=== PATIENT | female | born 1950 | race Caucasian/White ===

== ENCOUNTER 2018-10-16 13:01 | Inpatient (IN) | payer MEDICARE, BC ==
[2018-10-16] VITALS (9 sets, daily range): BP systolic 115–191; BP diastolic 59–88; PULSE 96–143; RESP 20; Ht 172.7 cm; Wt 47.3 kg
[~2018-10-16] VITALS: Ht 172.7 cm; Wt 47.3 kg
[~2018-10-16 13:01] MED LIST: ATEN-122; ATEN50TA PO; AUG875 PO; DOXY100T20 PO; LEVO500T48 PO; PREM125; PREM45 PO; VIC PO; VIT1TABL85 PO
[2018-10-16] MEDS ORDERED: HYDR-3980 PO (14:35)
[2018-10-16] MEDS ORDERED: ONDA8TAB83 PO (14:35)
[2018-10-16] MEDS ORDERED: LOPE-123 PO (14:35)
[2018-10-16] MEDS ORDERED: ONDANSETRON 4 MG TAB PO PRN (15:00)
[2018-10-16] MEDS: ATENOLOL 50 MG TAB PO SCH (15:30)
[2018-10-16] MEDS: D5-NS + KCL 20 MEQ 1,000 ML IV SCH (15:32)
[2018-10-16] MEDS: ACETAMINOPHEN 325 MG TAB PO PRN ×2 (15:33→22:08)
[2018-10-16] MEDS: HYDROCODONE/APAP (10/325) TAB PO PRN ×2 (15:40→21:02)
[2018-10-16] MEDS ORDERED: VITAMIN A & D 5 GM OINT PACKET TOP ONE (15:46)
[2018-10-16] MEDS ORDERED: VANCOMYCIN IV PER PHARMACY XX SCH (17:00)
[2018-10-16] MEDS ORDERED: ZOLPIDEM 5 MG TAB PO PRN (17:00)
[2018-10-16] MEDS: PIPER-TAZO 3.375 GM IV (PMX) 100 ML IVPB SCH (18:20)
[2018-10-16] MEDS ORDERED: ONDANSETRON 4 MG INJ IV PRN (18:30)
[2018-10-16] MEDS ORDERED: DIPHENHYD/MYLANTA/LIDO (PO SYG) PO PRN (19:00)
[2018-10-16] MEDS ORDERED: IOHEXOL 14.3 MG(I)/ML (ADULT) BTL PO ONE (19:00)
[2018-10-16] MEDS ORDERED: HYDROmorphONE 0.2 MG/ML PCA IV PRN (19:00)
--- NOTE | 2018-10-16 19:48 | HP ---
DATE OF ADMISSION: 10/16/2018 CHIEF COMPLAINT: Shaking chills, abdominal pain, diarrhea, nausea, vomiting and pancytopenia. HISTORY OF PRESENT ILLNESS: Ms. Baker is a 67-year-old postmenopausal female who is 1, para 0, AB 1. The patient has recently been diagnosed as having an invasive ductal carcinoma of the left breast. The patient did undergo a biopsy of the left breast mass and this was found to be consisten t with a poorly differentiated invasive ductal carcinoma of the breast. The tumor was estrogen and p rogesterone receptor positive as well as HER2/natalia positive. The patient was started on neoadjuvant chemotherapy on 10/09/2018. The patient was to rec eive "dose dense" chemotherapy with Adriamycin and cyclophosphamide being given every 2 weeks for 4 c ycles followed by paclitaxel weekly for 8 weeks. As mentioned, the patient did receive initial chemotherapy on 10/09/2018. She felt well until approx imately 36 hours ago when she began to experience some increasing weakness and fatigue as well as abd ominal pain and diarrhea. The patient also had shaking chills. She did not take her temperature, bu t she felt like she did have temperature. It should be noted that the patient did receive pegfilgrastim (Neulasta) 24 hours following her chemo therapy on 10/09/2018. The patient was seen in the office today because of those complaints listed above. A CBC done in the office showed a white count of only 100 with 25% being neutrophils. Hemoglobin was 8.2, hematocrit 25.1 and platelet count was 7000. When the patient was seen in the office at the time of chemotherap y, her white count was 2800 with an absolute neutrophil count of 1600, hemoglobin was 9.8, hematocrit 29.5 and platelet count was 158,000. The patient's other complaints at this time include mouth disc omfort and dysphagia with odynophagia. The patient as mentioned has had diarrhea. She has not noticed melena or hematochezia. The patient had not been taking antibiotics recently. PAST MEDICAL HISTORY: Includes the recent finding of the left breast mass. The patient also has his tory of diverticulosis as well as endometriosis. She has required blood transfusions in the past. H as had a history of a possible atrial fibrillation. Also has had history of malignant melanoma which has been resected as well as a squamous cell carcinoma. PAST SURGICAL HISTORY: Included biopsy of the breast as well as a previous right breast cyst excisio n. The patient has also had abdominal hysterectomy. She has had the excision of melanoma with skin graft. She had also excision of squamous cell carcinoma. MEDICATIONS: Include: 1. Hydrocodone with acetaminophen 10/325. 2. Atenolol 50 mg orally. 3. Estradiol 0.5 mg orally. ALLERGIES: THE PATIENT HAS NO KNOWN ALLERGIES. SOCIAL HISTORY: The patient is . She has never smoked cigarettes or used tobacco products. She does use alcohol on a regular basis. FAMILY HISTORY: Remarkable in that her mother, sister and maternal aunt have had breast carcinomas. LABORATORY DATA: At the time of admission include a sodium 133, potassium 3.9, BUN 17, creatinine 0. 78. Lactic acid 1.8. Uric acid 3.6. Calcium 7.8 with albumin of 3.1, alkaline phosphatase 59. LDH 294. AST 31, ALT 31 and total bilirubin 0.2. White blood cell count on admission is 100. There are 2% neutrophils. Hemoglobin 7.7, hematocrit 22 .0 and platelet count 5000. Pro time is 13.5 seconds, INR 1.02 and PTT is 43.4 seconds. DIAGNOSTIC DATA: Chest x-ray done on admission does show the central line ____ patient's Port-A-Cath . REVIEW OF SYSTEMS: HEENT: The patient complains of headache. She states this is different than her usual migraine head aches. There is no diplopia or blurred vision, no tinnitus. CARDIORESPIRATORY: No complaints of chest pain, cough, hemoptysis. No orthopnea or PND. GASTROINTESTINAL: There is diffuse abdominal pain. Some nausea and vomiting and also diarrhea. No melena or hematochezia. GENITOURINARY: No dysuria, hematuria, nocturia. MUSCULOSKELETAL: No unusual joint pain, swelling or tenderness. PHYSICAL EXAMINATION: GENERAL: Reveals a well-developed but frail and chronically ill-appearing female who is somewhat let hargic. VITAL SIGNS: Temperature 101 orally, pulse 115, respirations 18, blood pressure 100/60. SKIN: Pale. No ecchymosis, no petechiae or rashes. HEENT: Normocephalic. No evidence of trauma. Pupils are equal, round, react to light and accommoda tion. Sclerae are nonicteric. Oral mucosa is dry and no lesions. NECK: Supple. No jugular venous distention or thyroid enlargement. CHEST: Clear to auscultation and percussion. No rhonchi, wheezes, rales or rubs. There is a Port-A -Cath present in the right anterior chest wall. This has been accessed. BREASTS: There is a 2 cm palpable mass in the medial aspect of the left breast. There are no skin r etraction, no nipple inversion. No axillary masses. HEART: Sinus tachycardia. No S3, S4 or murmurs. ABDOMEN: Slightly distended and tender with diffuse guarding. No rebound tenderness. Bowel sounds are decreased. EXTREMITIES: No clubbing. No edema or cyanosis. No palpable cords or Homans sign. NEUROLOGIC: Normal. IMPRESSION: 1. Breast carcinoma. 2. Pancytopenia secondary to chemotherapy and possible sepsis. 3. Fever, chills, diarrhea, possible sepsis versus toxicity due to chemotherapy. The patient will be admitted to [address] [place] [address]. She will be started on a sep sis protocol. After cultures have been obtained, the patient will be started on antibiotics with vancomycin and Zos yn. The patient's platelet count is 5000 and therefore, patient will be transfused with 1 unit of platele tpheresis. The patient is complaining of abdominal pain and diarrhea. We will request a CT scan of the abdomen and pelvis with and without contrast. As noted, the patient is leukopenic in spite of having received pegfilgrastim [address] art the patient again on Neupogen ____ mcg daily. Dictated By: GERARDO TAVAREZ MD, SR/BECCA Conf#: [id number] DID#: [id number]
[2018-10-16] MEDS ORDERED: VANCOMYCIN 1 GM 250 ML IVPB SCH (20:30)
[2018-10-16] MEDS ORDERED: FILGRASTIM 480 MCG INJ SC SCH (20:30)
[2018-10-16] MEDS ORDERED: DIPHENHYDRAMINE 50 MG INJ IM PRN (22:00)
[2018-10-16] MEDS ORDERED: ACETAMINOPHEN 325 MG TAB PO PRN (22:00)
[2018-10-16] MEDS: DIPHENHYDRAMINE 50 MG INJ IV PRN (22:08)
[2018-10-17] VITALS (16 sets, daily range): BP systolic 95–144; BP diastolic 55–84; PULSE 81–120; RESP 18–29
[2018-10-17] MEDS: D5-NS + KCL 20 MEQ 1,000 ML IV SCH ×3 (00:30→20:40)
[2018-10-17] MEDS: PIPER-TAZO 3.375 GM IV (PMX) 100 ML IVPB SCH ×4 (01:49→18:25)
[2018-10-17] MEDS: HYDROCODONE/APAP (10/325) TAB PO PRN (02:00)
[2018-10-17] MEDS: HYDROmorphONE 1 MG/ML SYG IV PRN ×4 (05:00→20:29)
[2018-10-17] MEDS: ATENOLOL 50 MG TAB PO SCH (08:25)
[2018-10-17] MEDS ORDERED: ACETAMINOPHEN 1000MG/100ML IV 100 ML IVPB ONE ×2 (08:30→17:30)
[2018-10-17] MEDS: VANCOMYCIN 500 MG (PMX) 100 ML IVPB SCH ×2 (08:34→22:45)
[2018-10-17] MEDS: MULTIVITAMINS/MINERALS TAB PO SCH (08:44)
[2018-10-17] MEDS ORDERED: SOD CHLORIDE 0.9% 100 ML ONE (11:38)
[2018-10-17] MEDS ORDERED: IOHEXOL 300MG/ML 150 ML BTL ONE (11:38)
--- NOTE | 2018-10-17 15:08 | PN ---
Date/Time of Note Date/Time of Note DATE: 10/17/18 TIME: 14:58 Assessment/Plan VTE Prophylaxis Risk score (from Ns)>0 risk: 7 SCD applied (from [facility] [place] No SCD contraindicated: other (per primary) Pharmacological prophylaxis: other (thrombocytopenia) Lines/Catheters IV Catheter Type (from [facility]): PORT A CATH Urinary Cath still in place: No Assessment/Plan Assessment/Plan Pt remains pancytopenic despite Neulasta and now Neupogen. She did get chemotherapy but stopped eating as well. Her also says that she has never been a good eater and this has been a problem for many years. Presently she is eating virtually nothing since she says that it hurts to swallow. She also refuses to talk for the same reason. I discussed with them liquid food supplements, such as Ensure Clear. It is not clear that she will try this but I asked the nurse to get some. I also told the pt and her that she will recover faster if some nutrition can be provided. The tachycardia is improved since Dr. Hardin convinced her to at least take the Tenormin, that was a regular med for her. The rhythm is regular and does not look like atrial fibrillation. Result Diagram: 10/16/18 1526 10/16/18 1526 Results 24hrs Laboratory Tests Test 10/16/18 15:23 10/16/18 15:26 10/16/18 17:29 10/17/18 02:00 Amylase Level < 30 Lipase 14 L White Blood Count 0.1 #L Red Blood Count 2.16 #L Hemoglobin 7.7 #L Hematocrit 22.0 #L Mean Corpuscular 101.9 H Volume Mean Corpuscular 35.6 H Hemoglobin Mean Corpuscular 35.0 Hemoglobin Concent Red Cell 14.6 H Distribution Width Platelet Count 5 *L Mean Platelet 13.9 #H Volume Immature 0.000 L Granulocytes % Neutrophils % Segmented 2 L Neutrophils % (Manual) Lymphocytes % Lymphocytes % 98 H (Manual) Monocytes % Eosinophils % Basophils % Nucleated Red Blood 0.0 Cells % Immature 0.000 Granulocytes # Neutrophils # Lymphocytes 0.0 L (Manual) Lymphocytes # 0.1 L Monocytes # Eosinophils # Basophils # Nucleated Red Blood Cells # Pathologist YES Review (Hematology) Prothrombin Time 13.5 Prothrombin Time 1.1 Ratio INR International 1.02 Normalized Ratio Activated 43.4 H 43.3 H Partial Thromboplas t Time Sodium Level 133 L Potassium Level 3.9 Chloride Level 106 Carbon Dioxide 18 L Level Anion Gap 9 Blood Urea Nitrogen 17 Creatinine 0.78 Est Glomerular > 60 Filtrat Rate mL/min Glucose Level 96 Lactic Acid Level 1.8 Uric Acid 3.6 Calcium Level 7.8 L Total Bilirubin 0.2 Direct Bilirubin 0.00 Indirect Bilirubin 0.2 Aspartate Amino 31 Transf (AST/SGOT) Alanine 31 Aminotransferase (A LT/SGPT) Alkaline 59 Phosphatase Lactate 294 L Dehydrogenase Total Protein 5.5 L Albumin 3.1 L Globulin 2.40 Albumin/Globulin 1.29 Ratio Mix PTT Normal 35.8 Plasma Immediate Mix PTT Normal 39.0 Plasma 1 Hour Urine Color YELLOW Urine Clarity CLEAR Urine pH 5.0 Urine Specific 1.017 [place] Urine Ketones NEGATIVE Urine Nitrite NEGATIVE Urine Bilirubin NEGATIVE Urine Urobilinogen NEGATIVE Urine Leukocyte NEGATIVE Esterase Urine Microscopic 5 RBC Urine Microscopic 1 WBC Urine Squamous FEW Epithelial Cells Urine Bacteria FEW A Urine Hemoglobin 1+ H Urine Glucose NEGATIVE Urine Total Protein 1+ H Test 10/17/18 07:02 10/17/18 11:44 Lab Scanned Report BLOOD TRANSFUSION Lactic Acid Level 0.8 Subjective 24 Hr Interval Summary Free Text/Dictation 67 yo woman admitted for pancytopenia and fever, related in part to chemotherapy. He also stopped eating and has a history of poor nutritional intake for many years according to her and her . Last night she had a febrile reaction to platelet transfusion but has defervesced. She also had a sinus tachycardia that was likely due to the anemia and to cessation of beta alex that she has been on chronically. Exam/Review of Systems Vital Signs Vitals Vital Signs Date Temp Pulse Resp B/P (MAP) Pulse Ox O2 O2 Flow FiO2 Time Delivery Rate 10/17/18 91 19 108/61 100 Nasal 2.0 14:00 (77) Cannula 10/17/18 99.9 12:00 Intake and Output 10/16/18 10/16/18 10/17/18 1515:00 23:00 07:00 IntakeIntake Total 720 ml 1250 ml BalanceBalance 720 ml 1250 ml Exam Constitutional: alert, oriented Head: normocephalic Eyes: other (pallor) ENMT: other (miuld mucositis but no thrush seen.) Respiratory: clear to auscultation Cardiovascular: regular rate and rhythm (~98) Gastrointestinal: soft, non-tender Medications Medications Current Medications Potassium Chloride/Dextrose/ Sod Cl 1,000 ml @ 100 mls/hr Q10H IV Last admini stered on 10/17/18at 06:57; Admin Dose 100 MLS/HR; Start 10/16/18 at 14:30 Atenolol (Tenormin) 50 mg DAILY PO Last administered on 10/17/18 08:25; Admin Dose 50 MG; Start 10/16/18 at 15:30 Acetaminophen/ Hydrocodone Bitart ([place] (10/325)) 1 tab Q4H WHILE AWAKE PRN PO PAIN Last administered on 10/17/18 02:00; Admin Dose 1 TAB; Start 10/16/18 at 15:00 Ondansetron HCl (Zofran Tab) 8 mg Q8H PRN PO NAUSEA AND/OR VOMITING; Start 10/16/18 at 15:00 Multivitamins/ Minerals (Theragran-M) 1 tab DAILY PO ; Start 10/17/18 at 09:00 Acetaminophen (Tylenol Tab) 650 mg Q6H PRN PO MILD PAIN(1-3)OR ELEVATED TEMP L ast administered on 10/16/18 22:08; Admin Dose 650 MG; Start 10/16/18 at 15:00 Piperacillin Sod/ Tazobactam Sod 100 ml @ 200 mls/hr Q6 IVPB Last administered on 10/17/18 12:35; Admin Dose 200 MLS/HR; Start 10/16/18 at 18:00; Stop 10/23/18 at 18:00 Vancomycin HCl (Vanco Iv Per Pharmacy) VANCOMYCIN PER PHARMACY PER PROTOCOL XX ; Start 10/16/18 at 17:00 Zolpidem Tartrate (Ambien) 5 mg HS PRN PO INSOMNIA; Start 10/16/18 at 17:00 Ondansetron HCl (Zofran Inj) 4 mg Q4H PRN IV NAUSEA AND/OR VOMITING Last administered on 10/16/18 18:25; Admin Dose 4 MG; Start 10/16/18 at 18:30 Miscellaneous Medication (Bax Susp) 10 ml Q6H PRN PO mouth pain and dysphagia Last administered on 10/17/18 08:25; Admin Dose 10 ML; Start 10/16/18 at 19:00 Hydromorphone HCl (Dilaudid) 1 mg Q3H PRN IV SEVERE PAIN LEVEL 7-10 Last administered on 10/17/18at 11:03; Admin Dose 1 MG; Start 10/16/18 at 19:30 Filgrastim (Neupogen) 480 mcg DAILY@17 SC ; Start 10/17/18 at 17:00 Vancomycin HCl 100 ml @ 100 mls/hr Q12H IVPB Last administered on 10/17/18at 08:34; Admin Dose 100 MLS/HR; Start 10/17/18 at 08:00 Diphenhydramine HCl (Benadryl) 50 mg Q6H PRN IM ALLERGIC REACTION; Start 10/16/18 at 22:00 Diphenhydramine HCl (Benadryl) 50 mg Q6H PRN IV ALLERGIC REACTION Last administered on 10/16/18at 22:08; Admin Dose 50 MG; Start 10/16/18 at 22:30 Miscellaneous Information (*Rx Drug Level Order Reminder*) 1 ONCE ONCE XX ; Start 10/18/18 at 07:00; Stop 10/18/18 at 07:01 NATE LOPEZ MD Oct 17, 2018 15:08
[2018-10-17] MEDS: FILGRASTIM 480 MCG INJ SC SCH (17:26)
--- NOTE | 2018-10-17 17:34 | CONS ---
Date/Time of Note Date/Time of Note DATE: 10/17/18 TIME: 17:33 Assessment/Plan Assessment/Plan Assessment/Plan 67 yowf w/ invasive ductal carcinoma of the left breast who was sent to [facility] b/c f/c, and pancytopenia. Called to see pt b/c tachycardia. Reviewed her ECG and telemetry, and the rhythm is sinus tachycardia. Don't see any PAF or SVT (in my review). Considering she has neutropenic fever, her tachycardia is likely physiologic. Can continue atenolol as bp tolerates. Continue to monitor on telemetry. Would check echo (r/o any effusion). Tx of pancytopenia and fever per medicine team and oncology. Result Diagram: 10/16/18 1526 10/16/18 1526 Results 24hrs Laboratory Tests Test 10/17/18 02:00 10/17/18 07:02 10/17/18 11:44 Urine Color YELLOW Urine Clarity CLEAR Urine pH 5.0 Urine Specific [place] 1.017 Urine Ketones NEGATIVE Urine Nitrite NEGATIVE Urine Bilirubin NEGATIVE Urine Urobilinogen NEGATIVE Urine Leukocyte Esterase NEGATIVE Urine Microscopic RBC 5 Urine Microscopic WBC 1 Urine Squamous Epithelial Cells FEW Urine Bacteria FEW A Urine Hemoglobin 1+ H Urine Glucose NEGATIVE Urine Total Protein 1+ H Lab Scanned Report BLOOD TRANSFUSION Lactic Acid Level 0.8 Consultation Date/Type/Reason Admit Date/Time Oct 16, 2018 at 14:00 Date of Consultation: Oct 17, 2018 Type of Consult Cardiology Reason for Consultation tachycardia Hx of Present Illness 67 yowf w/ invasive ductal carcinoma of the left breast who was sent to [facility] b/c f/c, and pancytopenia. Called to see pt b/c tachycardia. Pt is receiving chemotherapy (including adriamycin and cyclophosphamide). She was noted to be tachycardic w/ HR in the 110s. The rhythm was sinus tachycardia (no afib). She is normally followed by Dr. Nevarez. Chart her mentions possible afib (will have to review office records). Currently her HR is in the 90s. She denies cp or sob. Past Medical History Invasive ductal carcinoma (on chemo) possible afib? (per chart) Medications Current Medications Potassium Chloride/Dextrose/ Sod Cl 1,000 ml @ 100 mls/hr Q10H IV Last administered on 10/17/18at 06:57; Admin Dose 100 MLS/HR; Start 10/16/18 at 14:30 Atenolol (Tenormin) 50 mg DAILY PO Last administered on 10/17/18at 08:25; Admin Dose 50 MG; Start 10/16/18 at 15:30 Acetaminophen/ Hydrocodone Bitart ([place] (10/325)) 1 tab Q4H WHILE AWAKE PRN PO PAIN Last administered on 10/17/18at 02:00; Admin Dose 1 TAB; Start 10/16/18 at 15:00 Ondansetron HCl (Zofran Tab) 8 mg Q8H PRN PO NAUSEA AND/OR VOMITING; Start 10/16/18 at 15:00 Multivitamins/ Minerals (Theragran-M) 1 tab DAILY PO ; Start 10/17/18 at 09:00 Acetaminophen (Tylenol Tab) 650 mg Q6H PRN PO MILD PAIN(1-3)OR ELEVATED TEMP Last administered on 10/16/18at 22:08; Admin Dose 650 MG; Start 10/16/18 at 15:00 Piperacillin Sod/ Tazobactam Sod 100 ml @ 200 mls/hr Q6 IVPB Last administered on 10/17/18at 12:35; Admin Dose 200 MLS/HR; Start 10/16/18 at 18:00; Stop 10/23/18 at 18:00 Vancomycin HCl (Vanco Iv Per Pharmacy) VANCOMYCIN PER PHARMACY PER PROTOCOL XX ; Start 10/16/18 at 17:00 Zolpidem Tartrate (Ambien) 5 mg HS PRN PO INSOMNIA; Start 10/16/18 at 17:00 Ondansetron HCl (Zofran Inj) 4 mg Q4H PRN IV NAUSEA AND/OR VOMITING Last administered on 10/16/18at 18:25; Admin Dose 4 MG; Start 10/16/18 at 18:30 Miscellaneous Medication (Bax Susp) 10 ml Q6H PRN PO mouth pain and dysphagia Last administered on 10/17/18at 08:25; Admin Dose 10 ML; Start 10/16/18 at 19:00 Hydromorphone HCl (Dilaudid) 1 mg Q3H PRN IV SEVERE PAIN LEVEL 7-10 Last administered on 10/17/18at 15:01; Admin Dose 1 MG; Start 10/16/18 at 19:30 Filgrastim (Neupogen) 480 mcg DAILY@17 SC ; Start 10/17/18 at 17:00 Vancomycin HCl 100 ml @ 100 mls/hr Q12H IVPB Last administered on 10/17/18at 08:34; Admin Dose 100 MLS/HR; Start 10/17/18 at 08:00 Diphenhydramine HCl (Benadryl) 50 mg Q6H PRN IM ALLERGIC REACTION; Start 10/16/18 at 22:00 Diphenhydramine HCl (Benadryl) 50 mg Q6H PRN IV ALLERGIC REACTION Last administered on 10/16/18at 22:08; Admin Dose 50 MG; Start 10/16/18 at 22:30 Miscellaneous Information (*Rx Drug Level Order Reminder*) 1 ONCE ONCE XX ; Start 10/18/18 at 07:00; Stop 10/18/18 at 07:01 Allergies: Coded Allergies: No Known Drug Allergies (Verified Allergy, Unknown, 10/20/13) Social History Smoking Status: Never smoker Exam/Review of Systems Vital Signs Vitals Vital Signs Date Temp Pulse Resp B/P (MAP) Pulse Ox O2 O2 Flow FiO2 Time Delivery Rate 10/17/18 94 16:00 10/17/18 108/61 100 Nasal 2.0 14:00 (77) Cannula 10/17/18 99.9 12:00 Intake and Output 10/16/18 10/16/18 10/17/18 1515:00 23:00 07:00 IntakeIntake Total 720 ml 1250 ml BalanceBalance 720 ml 1250 ml Exam awake, alert, fatigued, ill-appearing Neck: supple; No jvd Respiratory: clear to auscultation Cardiovascular: regular rate and rhythm; No systolic murmur Gastrointestinal: soft Extremities: No edema Neurological: nl mental status Medications Medications Current Medications Potassium Chloride/Dextrose/ Sod Cl 1,000 ml @ 100 mls/hr Q10H IV Last administered on 10/17/18at 06:57; Admin Dose 100 MLS/HR; Start 10/16/18 at 14:30 Atenolol (Tenormin) 50 mg DAILY PO Last administered on 10/17/18at 08:25; Admin Dose 50 MG; Start 10/16/18 at 15:30 Acetaminophen/ Hydrocodone Bitart ([place] (10/325)) 1 tab Q4H WHILE AWAKE PRN PO PAIN Last administered on 10/17/18 02:00; Admin Dose 1 TAB; Start 10/16/18 at 15:00 Ondansetron HCl (Zofran Tab) 8 mg Q8H PRN PO NAUSEA AND/OR VOMITING; Start 10/16/18 at 15:00 Multivitamins/ Minerals (Theragran-M) 1 tab DAILY PO ; Start 10/17/18 at 09:00 Acetaminophen (Tylenol Tab) 650 mg Q6H PRN PO MILD PAIN(1-3)OR ELEVATED TEMP Last administered on 10/16/18at 22:08; Admin Dose 650 MG; Start 10/16/18 at 15:00 Piperacillin Sod/ Tazobactam Sod 100 ml @ 200 mls/hr Q6 IVPB Last administered on 10/17/18at 12:35; Admin Dose 200 MLS/HR; Start 10/16/18 at 18:00; Stop 10/23/18 at 18:00 Vancomycin HCl (Vanco Iv Per Pharmacy) VANCOMYCIN PER PHARMACY PER PROTOCOL XX ; Start 10/16/18 at 17:00 Zolpidem Tartrate (Ambien) 5 mg HS PRN PO INSOMNIA; Start 10/16/18 at 17:00 Ondansetron HCl (Zofran Inj) 4 mg Q4H PRN IV NAUSEA AND/OR VOMITING Last administered on 10/16/18 18:25; Admin Dose 4 MG; Start 10/16/18 at 18:30 Miscellaneous Medication (Bax Susp) 10 ml Q6H PRN PO mouth pain and dysphagia Last administered on 10/17/18at 08:25; Admin Dose 10 ML; Start 10/16/18 at 19:00 Hydromorphone HCl (Dilaudid) 1 mg Q3H PRN IV SEVERE PAIN LEVEL 7-10 Last administered on 10/17/18at 15:01; Admin Dose 1 MG; Start 10/16/18 at 19:30 Filgrastim (Neupogen) 480 mcg DAILY@17 SC ; Start 10/17/18 at 17:00 Vancomycin HCl 100 ml @ 100 mls/hr Q12H IVPB Last administered on 10/17/18at 08:34; Admin Dose 100 MLS/HR; Start 10/17/18 at 08:00 Diphenhydramine HCl (Benadryl) 50 mg Q6H PRN IM ALLERGIC REACTION; Start 10/16/18 at 22:00 Diphenhydramine HCl (Benadryl) 50 mg Q6H PRN IV ALLERGIC REACTION Last administered on 10/16/18at 22:08; Admin Dose 50 MG; Start 10/16/18 at 22:30 Miscellaneous Information (*Rx Drug Level Order Reminder*) 1 ONCE ONCE XX ; Start 10/18/18 at 07:00; Stop 10/18/18 at 07:01 Imaging Imaging ECG - ST @ 102, nl axis, QRS 68, no pathologic Q or ischemic ST changes MADDIE GONZALES Oct 17, 2018 17:34
--- NOTE | 2018-10-17 19:38 | RADRPT ---
Vent Rate: 102 bpm RR Interval: 0 msec NE Interval: 154 msec QRS Duration: 68 msec QT Interval: 364 msec QTC Interval: 474 msec P-R-T [place]: 68 - 31 - 58 degrees Sinus tachycardia Otherwise normal ECG Electronically Signed By: Malik Juan [id number]
--- NOTE | 2018-10-17 22:04 | CONS ---
DATE OF ADMISSION: 10/16/2018 DATE OF CONSULTATION: 10/16/2018 I am covering this patient of Dr. Ritchie while he is unavailable. The patient is unwilling or unable to speak due to mouth pain, so history is obtained from the chart and from Dr. Ritchie's outpatient record. CHIEF COMPLAINT: The patient complains of pancytopenia, fever, abdominal pain. HISTORY OF PRESENT ILLNESS: The patient is a 67-year-old female with recent diagnosis of b reast cancer, receiving chemotherapy with Dr. Youssef about a week ago. Approximately 2 days prior, patient began feeling weak, fatigued with abdominal pain and watery diarrhea. She also had a subject donita temperature. The patient was seen by Dr. Youssef yesterday; platelets were noted to be 7000 with a white blood cell count of 100. The patient has a significant decreased appetite, admitted for fur ther management. The patient was started on antibiotics after appropriate cultures were drawn and al so was given a platelet transfusion during which patient had a reaction. She had an elevated blood p ressure and tachycardia. She was given Benadryl. I would also note that the patient had declined he r Atenolol earlier because of her mouth pain. The patient does report some difficulty speaking due t o her mouth pain and some sore throat. She did agree to take her Atenolol this morning. The patient denies any chest pain, shortness of breath. She did have some mild cough, but denies any abdominal pain. Stool was watery diarrhea. PAST MEDICAL HISTORY: Poorly differentiated invasive ductal carcinoma of the left breast. History o f cardiac arrhythmia, hyperlipidemia, melanoma, squamous cell carcinoma, diverticulosis, history of d iverticulitis. OPERATIONS: Breast cyst hysterectomy, removal of melanoma, removal of squamous cell carcinoma of the skin. MEDICATIONS: Outpatient 1. Atenolol 50 mg daily. 2. Vicodin p.r.n. 3. Folate. 4. B complex. 5. Estradiol. ALLERGIES: THE PATIENT HAS NO KNOWN DRUG ALLERGIES. SOCIAL HISTORY: The patient is . No tobacco. Occasional alcohol use. FAMILY HISTORY: Breast cancer in mother, sister and maternal aunt. Further review of systems not ob tainable due to patient not able to speak. PHYSICAL EXAMINATION: VITAL SIGNS: Temperature 98.3, pulse 120, blood pressure 137/84, respirations 18, pulse ox 99% on ro om air. GENERAL APPEARANCE: This is an ill-appearing female. Not speaking but in no acute distres s. HEENT: Normocephalic, atraumatic. The patient unable to open her mouth due to pain. NECK: Sensitive to the touch. Exam is limited. LUNGS: Clear to auscultation. CARDIAC: Tachycardic but regular. ABDOMEN: Bowel sounds are present. Abdomen is soft, nontender, nondistended. EXTREMITIES: Without cyanosis, clubbing, or edema. NEUROLOGIC: The patient is awake and alert but not speaking due to pain in her mouth. Moves all 4 e xtremities symmetrically. LABORATORY DATA: White count 0.1, hemoglobin 7.7, platelets 5000. Sodium 133, potassium 2.9, chlori de 106, bicarbonate 18, BUN 17, creatinine 0.78, glucose 96, AST 31, ALT 31. LDH 294, albumin 3.1, a mylase less than 30, lipase 14. INR 1.02, PTT 43.4, lactic acid 1.8. UA specific gravity 1.017, pH 5.0, negative leukocyte esterase, 5 RBCs, 1 white blood cell per high power field, few bacteria, 1+ h emoglobin, 1+ protein. IMPRESSION: 1. Pancytopenia. 2. Fever, rule out sepsis. 3. Abdominal pain and diarrhea, rule out infectious causes. 4. Tachycardia with history of cardiac arrhythmia. 5. Left breast cancer. PLAN: The patient to be transferred to telemetry. Beta alex as prescribed. The patient was agre eable to take her Atenolol this morning. Continue hydration, antibiotics as ordered. Follow up cult ure results. Abdominal CT pending. A 2D echo pending. Cardiology consult. Continue Benadryl as ne eded. Monitor labs. Dictated By: MADONNA ANTUNEZ MD MN/NTS Conf#: [id number] DID#: [id number] CC: SILVANO RITCHIE MD;*EndCC*
[2018-10-18] VITALS (28 sets, daily range): BP systolic 108–170; BP diastolic 61–100; PULSE 81–117; RESP 18–47
[2018-10-18] MEDS: PIPER-TAZO 3.375 GM IV (PMX) 100 ML IVPB SCH ×4 (00:51→17:14)
[2018-10-18] MEDS: HYDROmorphONE 1 MG/ML SYG IV PRN (02:27)
[2018-10-18] MEDS ORDERED: FUROSEMIDE 20 MG INJ IM ONE (05:30)
[2018-10-18] MEDS: D5-NS + KCL 20 MEQ 1,000 ML IV SCH ×2 (06:30→19:30)
--- NOTE | 2018-10-18 08:04 | CONS ---
Date/Time of Note Date/Time of Note DATE: 10/18/18 TIME: 07:49 Assessment/Plan Assessment/Plan Assessment/Plan 1) neutropenic fever continue with vanco/zosyn no fevers since 4pm yesterday blood cx are NGTD 2) odynophagia and loss of voice likely due to mucositis from the chemo I will start diflucan for possible candidal infection 3) R neck fullness I will order CT neck with IV contrast to verify no extravasation of blood has occurred or possible abscess due to the mucositis or impingement upon the esophagus/vocal cords on vanco/zosyn/diflucan would treat the possible infectious etiologies 4) typhilitis doubt she has c.dif, no prior antibiotics and diarrhea was present prior to intiation of them more likely due to the low WBC 5) breast CA s/p chemo Result Diagram: 10/18/18 0449 10/18/18 0449 Results 24hrs Laboratory Tests Test 10/17/18 11:44 10/18/18 04:49 Lactic Acid Level 0.8 White Blood Count 0.1 L Red Blood Count 1.25 #L Hemoglobin 4.5 #*L Hematocrit 13.6 #L Mean Corpuscular Volume 108.8 H Mean Corpuscular Hemoglobin 36.0 H Mean Corpuscular Hemoglobin Concent 33.1 Red Cell Distribution Width 15.3 H Platelet Count 3 #*L Mean Platelet Volume 14.7 H Nucleated Red Blood Cells % 0.0 Nucleated Red Blood Cells # Sodium Level 146 H Potassium Level 3.1 L Chloride Level 120 H Carbon Dioxide Level 17 L Anion Gap 9 Blood Urea Nitrogen 21 H Creatinine 0.99 Est Glomerular Filtrat Rate mL/min 56 L Glucose Level 75 Calcium Level 7.8 L Albumin 2.8 L Consultation Date/Type/Reason Admit Date/Time Oct 16, 2018 at 14:00 Date of Consultation: Oct 18, 2018 Type of Consult ID Hx of Present Illness pt was recently diagnosed with breast CA and received chemo around one week ago She 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, C, 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 but has had fevers her in the hospital she developed difficulty in talking about 3 days ago and now how trouble swallowing She has had diarrhea and abd pain upon admission and still does, no recent antibiotics She also has developed pain to R neck area with some noticeable swelling She developed SOB last night and was brought to the ICU and she was found to h ave a hgb of 4.5 She denies CP No dysuria She has sore throat She has a NUÑEZ and dizziness Past Medical History endometriosis, diverticulosis, melenoma, a-fib, L breast CA Medications Current Medications Potassium Chloride/Dextrose/ Sod Cl 1,000 ml @ 100 mls/hr Q10H IV Last administered on 10/17/18at 20:40; Admin Dose 100 MLS/HR; Start 10/16/18 at 14:30 Atenolol (Tenormin) 50 mg DAILY PO Last administered on 10/17/18at 08:25; Admin Dose 50 MG; Start 10/16/18 at 15:30 Acetaminophen/ Hydrocodone Bitart ([place] (10/325)) 1 tab Q4H WHILE AWAKE PRN PO PAIN Last administered on 10/17/18at 02:00; Admin Dose 1 TAB; Start 10/16/18 at 15:00 Ondansetron HCl (Zofran Tab) 8 mg Q8H PRN PO NAUSEA AND/OR VOMITING; Start 10/16/18 at 15:00 Multivitamins/ Minerals (Theragran-M) 1 tab DAILY PO ; Start 10/17/18 at 09:00 Acetaminophen (Tylenol Tab) 650 mg Q6H PRN PO MILD PAIN(1-3)OR ELEVATED TEMP Last administered on 10/16/18at 22:08; Admin Dose 650 MG; Start 10/16/18 at 15:00 Piperacillin Sod/ Tazobactam Sod 100 ml @ 200 mls/hr Q6 IVPB Last administered on 10/18/18at 06:29; Admin Dose 200 MLS/HR; Start 10/16/18 at 18:00; Stop 10/23/18 at 18:00 Vancomycin HCl (Vanco Iv Per Pharmacy) VANCOMYCIN PER PHARMACY PER PROTOCOL XX ; Start 10/16/18 at 17:00 Zolpidem Tartrate (Ambien) 5 mg HS PRN PO INSOMNIA; Start 10/16/18 at 17:00 Ondansetron HCl (Zofran Inj) 4 mg Q4H PRN IV NAUSEA AND/OR VOMITING Last administered on 10/16/18at 18:25; Admin Dose 4 MG; Start 10/16/18 at 18:30 Miscellaneous Medication (Bax Susp) 10 ml Q6H PRN PO mouth pain and dysphagia Last administered on 10/17/18 08:25; Admin Dose 10 ML; Start 10/16/18 at 19:00 Hydromorphone HCl (Dilaudid) 1 mg Q3H PRN IV SEVERE PAIN LEVEL 7-10 Last administered on 10/18/18 02:27; Admin Dose 1 MG; Start 10/16/18 at 19:30 Filgrastim (Neupogen) 480 mcg DAILY@17 SC Last administered on 10/17/18at 17:26; Admin Dose 480 MCG; Start 10/17/18 at 17:00 Vancomycin HCl 100 ml @ 100 mls/hr Q12H IVPB Last administered on 10/17/18at 22:45; Admin Dose 100 MLS/HR; Start 10/17/18 at 08:00 Diphenhydramine HCl (Benadryl) 50 mg Q6H PRN IM ALLERGIC REACTION; Start 10/16/18 at 22:00 Diphenhydramine HCl (Benadryl) 50 mg Q6H PRN IV ALLERGIC REACTION Last administered on 10/16/18at 22:08; Admin Dose 50 MG; Start 10/16/18 at 22:30 Levalbuterol (Xopenex Neb) 0.63 mg Q4H RESP THERAPY HHN ; Start 10/18/18 at 09:00 Allergies: Coded Allergies: No Known Drug Allergies (Verified Allergy, Unknown, 10/20/13) Social History Smoking Status: Never smoker Exam/Review of Systems Vital Signs Vitals Vital Signs Date Temp Pulse Resp B/P (MAP) Pulse Ox O2 O2 Flow FiO2 Time Delivery Rate 10/18/18 Non 15.0 07:25 Rebreather 10/18/18 107 24 141/72 100 07:00 (95) 10/18/18 99.6 04:00 Intake and Output 10/17/18 10/17/18 10/18/18 1515:00 23:00 07:00 IntakeIntake Total 825 ml 500 ml BalanceBalance 825 ml 500 ml Exam Constitutional: alert, oriented Eyes: nl sclera ENMT: other (no obvious thrush seen) Neck: other (R neck has fullness without redness, is tender) Respiratory: clear to auscultation Cardiovascular: regular rate and rhythm Gastrointestinal: soft, tender Neurological: other (moves all extremities) Medications Medications Current Medications Potassium Chloride/Dextrose/ Sod Cl 1,000 ml @ 100 mls/hr Q10H IV Last administered on 10/17/18 20:40; Admin Dose 100 MLS/HR; Start 10/16/18 at 14:30 Atenolol (Tenormin) 50 mg DAILY PO Last administered on 10/17/18 08:25; Admin Dose 50 MG; Start 10/16/18 at 15:30 Acetaminophen/ Hydrocodone Bitart ([place] (10/325)) 1 tab Q4H WHILE AWAKE PRN PO PAIN Last administered on 10/17/18 02:00; Admin Dose 1 TAB; Start 10/16/18 at 15:00 Ondansetron HCl (Zofran Tab) 8 mg Q8H PRN PO NAUSEA AND/OR VOMITING; Start 10/16/18 at 15:00 Multivitamins/ Minerals (Theragran-M) 1 tab DAILY PO ; Start 10/17/18 at 09:00 Acetaminophen (Tylenol Tab) 650 mg Q6H PRN PO MILD PAIN(1-3)OR ELEVATED TEMP Last administered on 10/16/18 22:08; Admin Dose 650 MG; Start 10/16/18 at 15:00 Piperacillin Sod/ Tazobactam Sod 100 ml @ 200 mls/hr Q6 IVPB Last administered on 10/18/18 06:29; Admin Dose 200 MLS/HR; Start 10/16/18 at 18:00; Stop 10/23/18 at 18:00 Vancomycin HCl (Vanco Iv Per Pharmacy) VANCOMYCIN PER PHARMACY PER PROTOCOL XX ; Start 10/16/18 at 17:00 Zolpidem Tartrate (Ambien) 5 mg HS PRN PO INSOMNIA; Start 10/16/18 at 17:00 Ondansetron HCl (Zofran Inj) 4 mg Q4H PRN IV NAUSEA AND/OR VOMITING Last administered on 10/16/18 18:25; Admin Dose 4 MG; Start 10/16/18 at 18:30 Miscellaneous Medication (Bax Susp) 10 ml Q6H PRN PO mouth pain and dysphagia Last administered on 10/17/18 08:25; Admin Dose 10 ML; Start 10/16/18 at 19:00 Hydromorphone HCl (Dilaudid) 1 mg Q3H PRN IV SEVERE PAIN LEVEL 7-10 Last administered on 10/18/18at 02:27; Admin Dose 1 MG; Start 10/16/18 at 19:30 Filgrastim (Neupogen) 480 mcg DAILY@17 SC Last administered on 10/17/18at 17:26; Admin Dose 480 MCG; Start 10/17/18 at 17:00 Vancomycin HCl 100 ml @ 100 mls/hr Q12H IVPB Last administered on 10/17/18at 2 2:45; Admin Dose 100 MLS/HR; Start 10/17/18 at 08:00 Diphenhydramine HCl (Benadryl) 50 mg Q6H PRN IM ALLERGIC REACTION; Start 10/16/18 at 22:00 Diphenhydramine HCl (Benadryl) 50 mg Q6H PRN IV ALLERGIC REACTION Last administered on 10/16/18at 22:08; Admin Dose 50 MG; Start 10/16/18 at 22:30 Levalbuterol (Xopenex Neb) 0.63 mg Q4H RESP THERAPY HHN ; Start 10/18/18 at 09:00 MARIAM IBRAHIM MD Oct 18, 2018 08:00
[2018-10-18] MEDS: LEVALBUTEROL (NEB) 0.63 MG/3 ML AMP HHN SCH ×4 (08:37→20:57)
[2018-10-18] MEDS: MULTIVITAMINS/MINERALS TAB PO SCH ×2 (08:55→09:00)
[2018-10-18] MEDS: ATENOLOL 50 MG TAB PO SCH (08:55)
[2018-10-18] MEDS: VANCOMYCIN 500 MG (PMX) 100 ML IVPB SCH (08:56)
--- NOTE | 2018-10-18 09:05 | CONS ---
Date/Time of Note Date/Time of Note DATE: 10/18/18 TIME: 09:00 Assessment/Plan Assessment/Plan Assessment/Plan Assessment recommendations; 1. Patient admitted with shortness of breath due to severe anemia likely chemotherapy induced. Currently getting blood transfusion. 2. Neck pain involving right side. Etiology is unclear. Patient awaiting CT imaging of the neck. 3. Pancytopenia. Chemotherapy related. 4. History of hypertension. Continue current supportive care. Monitor H&H. Further recommendations once CT imaging of the neck is obtained. I did have a detailed discussion with the patient's daughter at bedside and answered all her questions. Result Diagram: 10/18/18 0449 10/18/18 0449 Results 24hrs Laboratory Tests Test 10/17/18 11:44 10/18/18 04:49 10/18/18 06:59 Lactic Acid Level 0.8 White Blood Count 0.1 L Red Blood Count 1.25 #L Hemoglobin 4.5 #*L Hematocrit 13.6 #L Mean Corpuscular Volume 108.8 H Mean Corpuscular Hemoglobin 36.0 H Mean Corpuscular Hemoglobin Concent 33.1 Red Cell Distribution Width 15.3 H Platelet Count 3 #*L Mean Platelet Volume 14.7 H Nucleated Red Blood Cells % 0.0 Nucleated Red Blood Cells # Sodium Level 146 H Potassium Level 3.1 L Chloride Level 120 H Carbon Dioxide Level 17 L Anion Gap 9 Blood Urea Nitrogen 21 H Creatinine 0.99 Est Glomerular Filtrat Rate mL/min 56 L Glucose Level 75 Calcium Level 7.8 L Albumin 2.8 L Vancomycin Level Trough 16.4 Consultation Date/Type/Reason Admit Date/Time Oct 16, 2018 at 14:00 Date of Consultation: Oct 18, 2018 Type of Consult Pulmonary/critical care History of presenting illness; Patient is a pleasant 67-year-old lady who was brought into the hospital with fevers. Patient has recently been diagnosed with breast cancer and had first round of chemotherapy a few days ago. Patient was found to be neutropenic. Has been started on empiric antimicrobial coverage. Patient complains of throat pain. Complains of mild shortness of breath. Denies any abdominal pain. Did have diarrhea recently. Past medical history; 1. History of breast cancer diagnosed recently. Status post first cycle of chemotherapy. Medications; reviewed. Allergies; none. Social history; most of any smoking. Family history; patient is , has supportive family. Occupational history; noncontributory. Review of systems; denies any headache, seizures, complains of mild shortness of breath. Complains of sore throat. Complains of neck pain. Denies any coughing, sputum production hemoptysis. Denies any vomiting or nausea. Complains of mild diarrhea. Denies any abdominal pain. General exam; elderly female, awake and alert. Currently in no distress. Past Medical History Medications Current Medications Potassium Chloride/Dextrose/ Sod Cl 1,000 ml @ 100 mls/hr Q10H IV Last administered on 10/17/18 20:40; Admin Dose 100 MLS/HR; Start 10/16/18 at 14:30 Atenolol (Tenormin) 50 mg DAILY PO Last administered on 10/18/18 08:55; Admin Dose 50 MG; Start 10/16/18 at 15:30 Acetaminophen/ Hydrocodone Bitart ([place] (10/325)) 1 tab Q4H WHILE AWAKE PRN PO PAIN Last administered on 10/17/18 02:00; Admin Dose 1 TAB; Start 10/16/18 at 15:00 Ondansetron HCl (Zofran Tab) 8 mg Q8H PRN PO NAUSEA AND/OR VOMITING; Start 10/16/18 at 15:00 Multivitamins/ Minerals (Theragran-M) 1 tab DAILY PO Last administered on 10/18/18 08:55; Admin Dose 1 TAB; Start 10/17/18 at 09:00 Acetaminophen (Tylenol Tab) 650 mg Q6H PRN PO MILD PAIN(1-3)OR ELEVATED TEMP Last administered on 10/16/18at 22:08; Admin Dose 650 MG; Start 10/16/18 at 15:00 Piperacillin Sod/ Tazobactam Sod 100 ml @ 200 mls/hr Q6 IVPB Last administered on 10/18/18 06:29; Admin Dose 200 MLS/HR; Start 10/16/18 at 18:00; Stop 10/23/18 at 18:00 Vancomycin HCl (Vanco Iv Per Pharmacy) VANCOMYCIN PER PHARMACY PER PROTOCOL XX ; Start 10/16/18 at 17:00 Zolpidem Tartrate (Ambien) 5 mg HS PRN PO INSOMNIA; Start 10/16/18 at 17:00 Ondansetron HCl (Zofran Inj) 4 mg Q4H PRN IV NAUSEA AND/OR VOMITING Last administered on 10/16/18 18:25; Admin Dose 4 MG; Start 10/16/18 at 18:30 Miscellaneous Medication (Bax Susp) 10 ml Q6H PRN PO mouth pain and dysphagia Last administered on 10/17/18 08:25; Admin Dose 10 ML; Start 10/16/18 at 19:00 Hydromorphone HCl (Dilaudid) 1 mg Q3H PRN IV SEVERE PAIN LEVEL 7-10 Last administered on 10/18/18 02:27; Admin Dose 1 MG; Start 10/16/18 at 19:30 Filgrastim (Neupogen) 480 mcg DAILY@17 SC Last administered on 10/17/18 17:26; Admin Dose 480 MCG; Start 10/17/18 at 17:00 Vancomycin HCl 100 ml @ 100 mls/hr Q12H IVPB Last administered on 10/18/18 0 8:56; Admin Dose 100 MLS/HR; Start 10/17/18 at 08:00 Diphenhydramine HCl (Benadryl) 50 mg Q6H PRN IM ALLERGIC REACTION; Start 10/16/18 at 22:00 Diphenhydramine HCl (Benadryl) 50 mg Q6H PRN IV ALLERGIC REACTION Last administered on 10/16/18 22:08; Admin Dose 50 MG; Start 10/16/18 at 22:30 Levalbuterol (Xopenex Neb) 0.63 mg Q4H RESP THERAPY HHN Last administered on 10/18/18 08:37; Admin Dose 0.63 MG; Start 10/18/18 at 09:00 Fluconazole 100 ml @ 100 mls/hr Q24H IVPB ; Start 10/18/18 at 09:00 Allergies: Coded Allergies: No Known Drug Allergies (Verified Allergy, Unknown, 10/20/13) Social History Smoking Status: Never smoker Exam/Review of Systems Vital Signs Vitals Vital Signs Date Temp Pulse Resp B/P (MAP) Pulse Ox O2 O2 Flow FiO2 Time Delivery Rate 10/18/18 108 32 97 Non 15.0 100 08:38 Rebreather Mask 10/18/18 141/72 07:00 (95) 10/18/18 99.6 04:00 Intake and Output 10/17/18 10/17/18 10/18/18 1414:59 22:59 06:59 IntakeIntake Total 725 ml 600 ml BalanceBalance 725 ml 600 ml Exam HEENT exam; supple neck, no JVD. No lymphadenopathy. Midline trachea. No thyromegaly. Pharynx is clear. Patient has fair dentition. Chest exam; clear to auscultation. S1-S2 audible, no murmurs. There is mild swelling in right supraclavicular area. MediPort in right chest wall. Abdomen exam; soft, no organomegaly. Nontender. Bowel sounds audible. Extremity exam; edema clubbing. CLINICAL REVIEWER exam; no focal deficit. Medications Medications Current Medications Potassium Chloride/Dextrose/ Sod Cl 1,000 ml @ 100 mls/hr Q10H IV Last administered on 10/17/18 20:40; Admin Dose 100 MLS/HR; Start 10/16/18 at 14:30 Atenolol (Tenormin) 50 mg DAILY PO Last administered on 10/18/18at 08:55; Admin Dose 50 MG; Start 10/16/18 at 15:30 Acetaminophen/ Hydrocodone Bitart ([place] (10/325)) 1 tab Q4H WHILE AWAKE PRN PO PAIN Last administered on 10/17/18 02:00; Admin Dose 1 TAB; Start 10/16/18 at 15:00 Ondansetron HCl (Zofran Tab) 8 mg Q8H PRN PO NAUSEA AND/OR VOMITING; Start 10/16/18 at 15:00 Multivitamins/ Minerals (Theragran-M) 1 tab DAILY PO Last administered on 10/18/18 08:55; Admin Dose 1 TAB; Start 10/17/18 at 09:00 Acetaminophen (Tylenol Tab) 650 mg Q6H PRN PO MILD PAIN(1-3)OR ELEVATED TEMP Last administered on 10/16/18 22:08; Admin Dose 650 MG; Start 10/16/18 at 15:00 Piperacillin Sod/ Tazobactam Sod 100 ml @ 200 mls/hr Q6 IVPB Last administered on 10/18/18 06:29; Admin Dose 200 MLS/HR; Start 10/16/18 at 18:00; Stop 10/23/18 at 18:00 Vancomycin HCl (Vanco Iv Per Pharmacy) VANCOMYCIN PER PHARMACY PER PROTOCOL XX ; Start 10/16/18 at 17:00 Zolpidem Tartrate (Ambien) 5 mg HS PRN PO INSOMNIA; Start 10/16/18 at 17:00 Ondansetron HCl (Zofran Inj) 4 mg Q4H PRN IV NAUSEA AND/OR VOMITING Last administered on 10/16/18 18:25; Admin Dose 4 MG; Start 10/16/18 at 18:30 Miscellaneous Medication (Bax Susp) 10 ml Q6H PRN PO mouth pain and dysphagia Last administered on 10/17/18 08:25; Admin Dose 10 ML; Start 10/16/18 at 19:00 Hydromorphone HCl (Dilaudid) 1 mg Q3H PRN IV SEVERE PAIN LEVEL 7-10 Last administered on 10/18/18 02:27; Admin Dose 1 MG; Start 10/16/18 at 19:30 Filgrastim (Neupogen) 480 mcg DAILY@17 SC Last administered on 10/17/18 17:26; Admin Dose 480 MCG; Start 10/17/18 at 17:00 Vancomycin HCl 100 ml @ 100 mls/hr Q12H IVPB Last administered on 10/18/18 08:56; Admin Dose 100 MLS/HR; Start 10/17/18 at 08:00 Diphenhydramine HCl (Benadryl) 50 mg Q6H PRN IM ALLERGIC REACTION; Start 10/16/18 at 22:00 Diphenhydramine HCl (Benadryl) 50 mg Q6H PRN IV ALLERGIC REACTION Last administered on 10/16/18 22:08; Admin Dose 50 MG; Start 10/16/18 at 22:30 Levalbuterol (Xopenex Neb) 0.63 mg Q4H RESP THERAPY HHN Last administered on 10/18/18 08:37; Admin Dose 0.63 MG; Start 10/18/18 at 09:00 Fluconazole 100 ml @ 100 mls/hr Q24H IVPB ; Start 10/18/18 at 09:00 BRANDY ALEXANDER Oct 18, 2018 09:05
[2018-10-18] MEDS ORDERED: FUROSEMIDE 40 MG INJ IM ONE (09:30)
[2018-10-18] MEDS ORDERED: METOPROLOL 5 MG INJ IV SCH (09:30)
[2018-10-18] MEDS ORDERED: FUROSEMIDE 40 MG INJ ONE (09:30)
--- NOTE | 2018-10-18 09:38 | EN ---
Date/Time of Note Date/Time of Note DATE: 10/18/18 TIME: 09:30 Event Note Medicine Medicine Event Note Pt has become hypoxic in short period of time. There is swelling noted in Rt neck which was not present previously. It is soft. No pulsations. No neck vein distension. Chest: rhonchi. No wheezing or stridor. CXR: ? vascular congestion. No infiltrates. No widened mediastinum. Hgb has dropped to 4.4 and WBC has not responded to filgrastim. No platelet increment after platelet transfusion. Pt is receiving at least 2 units of RBC's but will likely require more. Will also give another unit of platelets. Pulmonary consult requested. Will obtain ultrasound of neck. Pt not stable en ough for CT. Pt states that she does not wish intubation or CPR. Will order DNR. Complete note dictated. GERARDO TAVAREZ MD Oct 18, 2018 09:38
[2018-10-18] MEDS: FLUCONAZOLE 200 MG (PMX) 100 ML IVPB SCH (10:29)
--- NOTE | 2018-10-18 10:29 | PN ---
DATE: 10/18/2018 SUBJECTIVE: Patient is having worsening problems with shortness of breath and difficulty swallowing. The patient has begun to desaturate rapidly this a.m. OBJECTIVE: The patient is a well-developed, but frail female with weakness and shortness of breath. VITAL SIGNS: Temperature 99.6, pulse 108, respirations 32, blood pressure 141/72, pulse oximetry 97 % on a nonrebreather mask at 100%. SKIN: Pale. No ecchymosis, no petechiae or rashes. HEENT: Normocephalic. No evidence of trauma. Pupils equal, round, reactive to light and accommodat ion. Sclerae nonicteric. Oral mucosa is dry. Do not see any actual ulcerations. No obvious monili al exudate. NECK: Supple. No jugular venous distention, but there is soft tissue swelling in the right side of the neck. This is soft and not fluctuant. Not pulsatile. CHEST: There are bilateral rhonchi. No wheezes or rubs. There is no stridor. There is a port in p lace in the right anterior chest which has been accessed and has good blood return. There is no prom inent venous pattern on the chest. HEART: Sinus tachycardia. No S3, S4 or murmurs. BREASTS: There is a 2 cm soft but easily palpable mass in the left lateral breast. NODES: No palpable lymphadenopathy. ABDOMEN: Soft, no masses, no ascites. EXTREMITIES: No clubbing. No edema or cyanosis. No palpable cords or Homans sign. NEUROLOGIC: No focal neurologic abnormalities. Chest x-ray done this morning does show bibasilar atelectasis. The Port-A-Cath is seen in place. LABORATORY DATA: White count 100, hemoglobin 4.5, hematocrit 13.6, MCV 108.8 and platelet count 3000 . Sodium 146, potassium 3.1, chloride 120, BUN 21, creatinine 0.99. Lactate 0.8. ASSESSMENT: 1. Breast carcinoma. 2. Pancytopenia secondary to chemotherapy. 3. Possible septicemia. 4. Worsening respiratory distress, rule out sepsis. PLAN: I have requested consultation from Dr. Patel. I do feel, at this time there is some evidence of fluid overload. I will give 40 mg of Lasix along w ith the patient's transfusions. The patient is to receive 2 units of packed red blood cells, but will likely require more. Did not a chieve any increment from the platelet transfusion given yesterday. We will receive another unit of platelets. The patient's right neck swelling is worrisome. There is no jugular venous distention to suggest a v enocaval obstruction. There may be some thrombosis in internal jugular vein due to the Port-A-Cath. There is good blood flow. There does not appear to be any prominent venous pattern on the anterior chest wall or swelling of the right arm. We will obtain an ultrasound of the neck as the patient is not stable enough to get a CT scan. The patient has stated that she does not wish to be intubated or resuscitated. We will make the enzo ent a NO CODE. Dictated By: GERARDO TAVAREZ MD SR/NTS Conf#: [id number] DID#: [id number] CC: MELBA LAZAR MD; SILVANO RITCHIE MD;*EndCC*
[2018-10-18] MEDS: FAMOTIDINE 20 MG INJ IV SCH (13:36)
[2018-10-18] MEDS: DIPHENHYDRAMINE 50 MG INJ IV PRN (13:37)
--- NOTE | 2018-10-18 15:37 | PN ---
Date/Time of Note Date/Time of Note DATE: 10/18/18 TIME: 15:23 Assessment/Plan VTE Prophylaxis Risk score (from [facility] [place]0 risk: 8 SCD applied (from [facility] [place]): Yes Pharmacological prophylaxis: NA/contraindicated Pharm contraindication: thrombocytopenia Lines/Catheters [facility] [place] [facility] Urinary Cath still in place: No Assessment/Plan Assessment/Plan A: sepsis pancytopenia respiratory failure hypokalemia neck swelling- u/s showing adenopathy breast Ca P: transfuse prbc, platelets as ordered abx, antifungal as per ID replace K pt declines intubation if becomes necessary monitor labs cont other rx Result Diagram: 10/18/189 10/18/18448 Results 24hrs Laboratory Tests Test 10/18/18 04:49 10/18/18 06:59 White Blood Count 0.1 L Red Blood Count 1.25 #L Hemoglobin 4.5 #*L Hematocrit 13.6 #L Mean Corpuscular Volume 108.8 H Mean Corpuscular Hemoglobin 36.0 H Mean Corpuscular Hemoglobin Concent 33.1 Red Cell Distribution Width 15.3 H Platelet Count 3 #*L Mean Platelet Volume 14.7 H Segmented Neutrophils % (Manual) 7 L Band Neutrophils % (Manual) 6 H Lymphocytes % (Manual) 78 H Reactive Lymphocytes % (Manual) 2 H Monocytes % (Manual) 6 Myelocytes % (Manual) 1 H Nucleated Red Blood Cells % 0.0 Neutrophils # (Manual) 0.0 L Band Neutrophils # 0.0 Lymphocytes (Manual) 0.0 L Reactive Lymphocytes # 0.0 Monocytes # (Manual) 0.0 L Myelocytes # 0.0 Nucleated Red Blood Cells # White Cell Morphology Comment @See below Platelet Estimate SIG DECREASED Giant Platelets 7 H Polychromasia 3+ Hypochromasia 1+ Poikilocytosis 1+ Anisocytosis 3+ Macrocytosis 3+ Red Cell Morphology Comment @See below Sodium Level 146 H Potassium Level 3.1 L Chloride Level 120 H Carbon Dioxide Level 17 L Anion Gap 9 Blood Urea Nitrogen 21 H Creatinine 0.99 Est Glomerular Filtrat Rate mL/min 56 L Glucose Level 75 Calcium Level 7.8 L Albumin 2.8 L Vancomycin Level Trough 16.4 Subjective 24 Hr Interval Summary Free Text/Dictation Pulmonary and ID consults appreciated. Pt with respiratory distress and desaturation overnight. Declined abg. Transferred to ICU on NRB mask. Saturating okay. Declining intubation if becomes necessary. Has had neck swelling, pain in throat and neck. Still severely pancytopenic, transfusions ordered. Exam/Review of Systems Vital Signs Vitals Vital Signs Date Temp Pulse Resp B/P (MAP) Pulse Ox O2 O2 Flow FiO2 Time Delivery Rate 10/18/18 86 100 14:27 10/18/18 101 40 Non 15.0 13:00 Rebreather Mask 10/18/18 99.4 144/83 12:00 (103) Intake and Output 10/17/18 10/17/18 10/18/18 1515:00 23:00 07:00 IntakeIntake Total 825 ml 500 ml BalanceBalance 825 ml 500 ml Exam gen- tachypneic, ill appearing neck- swelling and tenderness rt neck lungs- CTA heart- tachy, regular abd- +BS, mild tenderness ext- no edema Medications Medications Current Medications Potassium Chloride/Dextrose/ Sod Cl 1,000 ml @ 100 mls/hr Q10H IV Last administered on 10/17/18at 20:40; Admin Dose 100 MLS/HR; Start 10/16/18 at 14:30 Acetaminophen/ Hydrocodone Bitart ([place] (10/325)) 1 tab Q4H WHILE AWAKE PRN PO PAIN Last administered on 10/17/18at 02:00; Admin Dose 1 TAB; Start 10/16/18 at 15:00 Ondansetron HCl (Zofran Tab) 8 mg Q8H PRN PO NAUSEA AND/OR VOMITING; Start 10/16/18 at 15:00 Multivitamins/ Minerals (Theragran-M) 1 tab DAILY PO ; Start 10/17/18 at 09:00 Acetaminophen (Tylenol Tab) 650 mg Q6H PRN PO MILD PAIN(1-3)OR ELEVATED TEMP Last administered on 10/16/18at 22:08; Admin Dose 650 MG; Start 10/16/18 at 15:00 Piperacillin Sod/ Tazobactam Sod 100 ml @ 200 mls/hr Q6 IVPB Last administered on 10/18/18at 12:10; Admin Dose 200 MLS/HR; Start 10/16/18 at 18:00; Stop 10/23/18 at 18:00 Vancomycin HCl (Vanco Iv Per Pharmacy) VANCOMYCIN PER PHARMACY PER PROTOCOL XX ; Start 10/16/18 at 17:00 Zolpidem Tartrate (Ambien) 5 mg HS PRN PO INSOMNIA; Start 10/16/18 at 17:00 Ondansetron HCl (Zofran Inj) 4 mg Q4H PRN IV NAUSEA AND/OR VOMITING Last administered on 10/16/18 18:25; Admin Dose 4 MG; Start 10/16/18 at 18:30 Miscellaneous Medication (Bax Susp) 10 ml Q6H PRN PO mouth pain and dysphagia Last administered on 10/17/18 08:25; Admin Dose 10 ML; Start 10/16/18 at 19:00 Hydromorphone HCl (Dilaudid) 1 mg Q3H PRN IV SEVERE PAIN LEVEL 7-10 Last administered on 10/18/18 02:27; Admin Dose 1 MG; Start 10/16/18 at 19:30 Filgrastim (Neupogen) 480 mcg DAILY@17 SC Last administered on 10/17/18 17:26; Admin Dose 480 MCG; Start 10/17/18 at 17:00 Diphenhydramine HCl (Benadryl) 50 mg Q6H PRN IM ALLERGIC REACTION; Start 10/16/18 at 22:00 Diphenhydramine HCl (Benadryl) 50 mg Q6H PRN IV ALLERGIC REACTION Last administered on 10/18/18 13:37; Admin Dose 50 MG; Start 10/16/18 at 22:30 Levalbuterol (Xopenex Neb) 0.63 mg Q4H RESP THERAPY HHN Last administered on 10/18/18 12:58; Admin Dose 0.63 MG; Start 10/18/18 at 09:00 Fluconazole 100 ml @ 100 mls/hr Q24H IVPB Last administered on 10/18/18 10:29; Admin Dose 100 MLS/HR; Start 10/18/18 at 09:00 Vancomycin/Sodium Chloride 250 ml @ 125 mls/hr Q24H IVPB ; Start 10/19/18 at 09:00 Metoprolol Tartrate (Lopressor) 5 mg Q6 IV Last administered on 10/18/18 10:16; Admin Dose 5 MG; Start 10/18/18 at 09:30; Status Hold Furosemide (Lasix) 40 mg BID DIURETICS IV ; Start 10/18/18 at 18:00 Famotidine (Pepcid Iv) 20 mg DAILY IV Last administered on 10/18/18at 13:36; Admin Dose 20 MG; Start 10/18/18 at 13:00 MADONNA ANTUNEZ MD Oct 18, 2018 15:33
[2018-10-18] MEDS: FUROSEMIDE 40 MG INJ IV SCH (17:14)
[2018-10-18] MEDS: FILGRASTIM 480 MCG INJ SC SCH (17:15)
[2018-10-18] MEDS: POTASSIUM CHLORIDE 100 ML IVPB SCH ×2 (17:16→20:51)
[2018-10-18] MEDS ORDERED: ACETAMINOPHEN 1000MG/100ML IV 100 ML IVPB PRN (19:00)
[2018-10-19] VITALS (56 sets, daily range): BP systolic 94–160; BP diastolic 38–133; PULSE 91–140; RESP 17–42
[2018-10-19] MEDS: HYDROmorphONE 1 MG/ML SYG IV PRN ×3 (00:10→10:44)
[2018-10-19] MEDS: PIPER-TAZO 3.375 GM IV (PMX) 100 ML IVPB SCH ×4 (00:11→22:00)
[2018-10-19] MEDS: LEVALBUTEROL (NEB) 0.63 MG/3 ML AMP HHN SCH ×6 (01:09→21:00)
[2018-10-19] MEDS: FUROSEMIDE 40 MG INJ IV SCH (05:47)
--- NOTE | 2018-10-19 07:36 | CONS ---
Date/Time of Note Date/Time of Note DATE: 10/19/18 TIME: 07:30 Assessment/Plan Assessment/Plan Hospital Course pt was recently diagnosed with breast CA and received chemo around one week ago She denies F, C, NS [employer] but has had fevers her in the hospital she developed difficulty in talking about 3 days ago and now how trouble swallowing She has had diarrhea and abd pain upon admission and still does, no recent antibiotics She also has developed pain to R neck area with some noticeable swelling She developed SOB last night and was brought to the ICU and she was found to have a hgb of 4.5 She denies CP No dysuria She has sore throat She has a NUÑEZ and dizziness Assessment/Plan 1) neutropenic fever continue with vanco/zosyn no fevers since 4pm yesterday blood cx are NGTD /5 - temp to 101.2 at 8pm last night, none since then blood cx remain NGTD continue with vanco/zosyn 2) odynophagia and loss of voice likely due to mucositis from the chemo I will start diflucan for possible candidal infection /5 - improved able to phonate a bit continue with diflucan 3) R neck fullness I will order CT neck with IV contrast to verify no extravasation of blood has occurred or possible abscess due to the mucositis or impingement upon the esophagus/vocal cords on vanco/zosyn/diflucan would treat the possible infectious etiologies / - less full today, u/s was done and only showed enlarged LN's, this is likely reactive to her mucositis I will cancel CT of neck 4) typhilitis doubt she has c.dif, no prior antibiotics and diarrhea was present prior to intiation of them more likely due to the low WBC / - still has abd pain 5) breast CA s/p chemo Result Diagram: 10/18/18 0449 10/18/18 0449 Results 24hrs Laboratory Tests Test 10/19/18 07:09 White Blood Count Pending Red Blood Count Pending Hemoglobin Pending Hematocrit Pending Mean Corpuscular Volume Pending Mean Corpuscular Hemoglobin Pending Mean Corpuscular Hemoglobin Concent Pending Red Cell Distribution Width Pending Platelet Count Pending Mean Platelet Volume Pending Consultation Date/Type/Reason Admit Date/Time Oct 16, 2018 at 14:00 Initial Consult Date 10/18/18 Type of Consult ID 24 HR Interval Summary Free Text/Dictation pt now wants to eat this a.m. still has some mouth pain got dilaudid for control of abd pains with good response no V green liquid stools noted but no abd cramping Exam/Review of Systems Vital Signs Vitals Vital Signs Date Temp Pulse Resp B/P (MAP) Pulse Ox O2 O2 Flow FiO2 Time Delivery Rate 10/19/18 102 28 100 15.0 90 06:21 10/19/18 117/80 High Flow 05:00 (92) 10/19/18 97.6 04:00 Intake and Output 10/18/18 10/18/18 10/19/18 1515:00 23:00 07:00 IntakeIntake Total 2265 ml 690 ml 480 ml OutputOutput Total 1050 ml 550 ml BalanceBalance 1215 ml 140 ml 480 ml Exam pt looks less katty Constitutional: alert Eyes: nl sclera ENMT: other (much less coating to the tongue) Respiratory: clear to auscultation Cardiovascular: regular rate and rhythm Gastrointestinal: soft, tender Medications Medications Current Medications Acetaminophen/ Hydrocodone Bitart ([place] (10/325)) 1 tab Q4H WHILE AWAKE PRN PO PAIN Last administered on 10/17/18at 02:00; Admin Dose 1 TAB; Start 10/16/18 at 15:00 Ondansetron HCl (Zofran Tab) 8 mg Q8H PRN PO NAUSEA AND/OR VOMITING; Start 10/16/18 at 15:00 Multivitamins/ Minerals (Theragran-M) 1 tab DAILY PO ; Start 10/17/18 at 09:00 Acetaminophen (Tylenol Tab) 650 mg Q6H PRN PO MILD PAIN(1-3)OR ELEVATED TEMP Last administered on 10/16/18at 22:08; Admin Dose 650 MG; Start 10/16/18 at 15:00 Piperacillin Sod/ Tazobactam Sod 100 ml @ 200 mls/hr Q6 IVPB Last administered on 10/19/18at 05:47; Admin Dose 200 MLS/HR; Start 10/16/18 at 18:00; Stop 10/23/18 at 18:00 Vancomycin HCl (Vanco Iv Per Pharmacy) VANCOMYCIN PER PHARMACY PER PROTOCOL XX ; Start 10/16/18 at 17:00 Zolpidem Tartrate (Ambien) 5 mg HS PRN PO INSOMNIA; Start 10/16/18 at 17:00 Ondansetron HCl (Zofran Inj) 4 mg Q4H PRN IV NAUSEA AND/OR VOMITING Last admin istered on 10/16/18 18:25; Admin Dose 4 MG; Start 10/16/18 at 18:30 Miscellaneous Medication (Bax Susp) 10 ml Q6H PRN PO mouth pain and dysphagia Last administered on 10/17/18 08:25; Admin Dose 10 ML; Start 10/16/18 at 19:00 Hydromorphone HCl (Dilaudid) 1 mg Q3H PRN IV SEVERE PAIN LEVEL 7-10 Last ad ministered on 10/19/18 03:56; Admin Dose 1 MG; Start 10/16/18 at 19:30 Filgrastim (Neupogen) 480 mcg DAILY@17 SC Last administered on 10/18/18 17:15; Admin Dose 480 MCG; Start 10/17/18 at 17:00 Diphenhydramine HCl (Benadryl) 50 mg Q6H PRN IM ALLERGIC REACTION Last administered on 10/18/18 20:57; Admin Dose 50 MG; Start 10/16/18 at 22:00 Diphenhydramine HCl (Benadryl) 50 mg Q6H PRN IV ALLERGIC REACTION Last administered on 10/18/18 13:37; Admin Dose 50 MG; Start 10/16/18 at 22:30 Levalbuterol (Xopenex Neb) 0.63 mg Q4H RESP THERAPY HHN Last administered on 10/19/18 06:10; Admin Dose 0.63 MG; Start 10/18/18 at 09:00 Fluconazole 100 ml @ 100 mls/hr Q24H IVPB Last administered on 10/18/18 10:29; Admin Dose 100 MLS/HR; Start 10/18/18 at 09:00 Vancomycin/Sodium Chloride 250 ml @ 125 mls/hr Q24H IVPB ; Start 10/19/18 at 09:00 Metoprolol Tartrate (Lopressor) 5 mg Q6 IV Last administered on 10/18/18 10:16; Admin Dose 5 MG; Start 10/18/18 at 09:30; Status Hold Furosemide (Lasix) 40 mg BID DIURETICS IV Last administered on 10/19/18 05:47; Admin Dose 40 MG; Start 10/18/18 at 18:00 Famotidine (Pepcid Iv) 20 mg DAILY IV Last administered on 10/18/18at 13:36; Admin Dose 20 MG; Start 10/18/18 at 13:00 Potassium Chloride/Dextrose/ Sod Cl 1,000 ml @ 100 mls/hr Q10H IV Last administered on 10/18/18at 19:30; Admin Dose 100 MLS/HR; Start 10/18/18 at 19:30 Acetaminophen 100 ml @ 400 mls/hr Q6H PRN IVPB FEVER Last administered on 10/18/18 19:49; Admin Dose 400 MLS/HR; Start 10/18/18 at 19:00; Stop 10/19/18 at 18:59 MARIAM IBRAHIM MD Oct 19, 2018 07:36
[2018-10-19] MEDS: MULTIVITAMINS/MINERALS TAB PO SCH (09:00)
[2018-10-19] MEDS ORDERED: VANCOMYCIN 750 MG (PMX) 250 ML IVPB SCH (09:00)
[2018-10-19] MEDS: D5-NS + KCL 20 MEQ 1,000 ML IV SCH ×2 (09:00→16:28)
[2018-10-19] MEDS: FAMOTIDINE 20 MG INJ IV SCH (09:12)
[2018-10-19] MEDS: POTASSIUM CHLORIDE 50 ML IVPB PRN ×3 (09:12→12:45)
--- NOTE | 2018-10-19 09:49 | CONS ---
Date/Time of Note Date/Time of Note DATE: 10/19/18 TIME: 09:43 Consult Date/Type/Reason Admit Date/Time Oct 16, 2018 at 14:00 Initial Consult Date 10/18/18 Subjective Pt remains in ICU on broad spectrum antibiotics. Admitted with neutropenic sepsis. Had fever last night. No fever this am. Received blood and plts. No active bleeding. SOB improved with lasix but pt on IVF Cr is up this am. Objective Vital Signs Date Temp Pulse Resp B/P (MAP) Pulse Ox O2 O2 Flow FiO2 Time Delivery Rate 10/19/18 102 28 100 15.0 90 06:21 10/19/18 117/80 High Flow 05:00 (92) 10/19/18 97.6 04:00 Intake and Output 10/18/18 10/18/18 10/19/18 1515:00 23:00 07:00 IntakeIntake Total 2265 ml 690 ml 480 ml OutputOutput Total 1050 ml 550 ml BalanceBalance 1215 ml 140 ml 480 ml Exam Pt is thin and appears to be in respiratory distress Hoarseness Bitemporal wasting No oral ulcerations but very dry mouth Slight crackles at the bases Tachycardic without extra heart sounds Abdomen slightly tender but no rebound or guarding No c/c/e CN 2-12 intact No overt rash or synovitis Results/Medications Result Diagram: 10/19/18 0709 10/19/18 0709 Results 24 hrs Laboratory Tests Test 10/19/18 07:09 White Blood Count 0.1 L Red Blood Count 2.47 #L Hemoglobin 8.1 #L Hematocrit 24.1 #L Mean Corpuscular Volume 97.6 Mean Corpuscular Hemoglobin 32.8 Mean Corpuscular Hemoglobin Concent 33.6 Red Cell Distribution Width 19.4 #H Platelet Count 14 #*L Mean Platelet Volume 9.5 # Immature Granulocytes % Neutrophils % Lymphocytes % Monocytes % Eosinophils % Basophils % Nucleated Red Blood Cells % 0.0 Immature Granulocytes # Neutrophils # Lymphocytes # Monocytes # Eosinophils # Basophils # Nucleated Red Blood Cells # Sodium Level 153 H Potassium Level 2.5 *L Chloride Level 121 H Carbon Dioxide Level 21 Anion Gap 11 Blood Urea Nitrogen 35 #H Creatinine 1.57 H Est Glomerular Filtrat Rate mL/min 33 L Glucose Level 90 Calcium Level 9.2 Total Bilirubin 1.0 Direct Bilirubin 0.30 H Indirect Bilirubin 0.7 Aspartate Amino Transf (AST/SGOT) 19 Alanine Aminotransferase (ALT/SGPT) 21 Alkaline Phosphatase 26 L Total Protein 6.1 Albumin 3.1 L Globulin 3.00 Albumin/Globulin Ratio 1.03 Medications Current Medications Acetaminophen/ Hydrocodone Bitart ([place] (10/325)) 1 tab Q4H WHILE AWAKE PRN PO PAIN Last administered on 10/17/18at 02:00; Admin Dose 1 TAB; Start 10/16/18 at 15:00 Ondansetron HCl (Zofran Tab) 8 mg Q8H PRN PO NAUSEA AND/OR VOMITING; Start 10/16/18 at 15:00 Multivitamins/ Minerals (Theragran-M) 1 tab DAILY PO ; Start 10/17/18 at 09:00 Acetaminophen (Tylenol Tab) 650 mg Q6H PRN PO MILD PAIN(1-3)OR ELEVATED TEMP Last administered on 10/16/18at 22:08; Admin Dose 650 MG; Start 10/16/18 at 15:00 Piperacillin Sod/ Tazobactam Sod 100 ml @ 200 mls/hr Q6 IVPB Last administered on 10/19/18at 05:47; Admin Dose 200 MLS/HR; Start 10/16/18 at 18:00; Stop 10/23/18 at 18:00 Vancomycin HCl (Vanco Iv Per Pharmacy) VANCOMYCIN PER PHARMACY PER PROTOCOL XX ; Start 10/16/18 at 17:00 Zolpidem Tartrate (Ambien) 5 mg HS PRN PO INSOMNIA; Start 10/16/18 at 17:00 Ondansetron HCl (Zofran Inj) 4 mg Q4H PRN IV NAUSEA AND/OR VOMITING Last administered on 10/16/18at 18:25; Admin Dose 4 MG; Start 10/16/18 at 18:30 Miscellaneous Medication (Bax Susp) 10 ml Q6H PRN PO mouth pain and dysphagia Last administered on 10/17/18at 08:25; Admin Dose 10 ML; Start 10/16/18 at 19:00 Hydromorphone HCl (Dilaudid) 1 mg Q3H PRN IV SEVERE PAIN LEVEL 7-10 Last administered on 10/19/18at 03:56; Admin Dose 1 MG; Start 10/16/18 at 19:30 Filgrastim (Neupogen) 480 mcg DAILY@17 SC Last administered on 10/18/18 17:15; Admin Dose 480 MCG; Start 10/17/18 at 17:00 Diphenhydramine HCl (Benadryl) 50 mg Q6H PRN IM ALLERGIC REACTION Last administered on 10/18/18 20:57; Admin Dose 50 MG; Start 10/16/18 at 22:00 Diphenhydramine HCl (Benadryl) 50 mg Q6H PRN IV ALLERGIC REACTION Last a dministered on 10/18/18 13:37; Admin Dose 50 MG; Start 10/16/18 at 22:30 Levalbuterol (Xopenex Neb) 0.63 mg Q4H RESP THERAPY HHN Last administered on 10/19/18 06:10; Admin Dose 0.63 MG; Start 10/18/18 at 09:00 Fluconazole 100 ml @ 100 mls/hr Q24H IVPB Last administered on 10/18/18 10:29; Admin Dose 100 MLS/HR; Start 10/18/18 at 09:00 Vancomycin/Sodium Chloride 250 ml @ 125 mls/hr Q24H IVPB Last administered on 10/19/18 09:12; Admin Dose 125 MLS/HR; Start 10/19/18 at 09:00 Metoprolol Tartrate (Lopressor) 5 mg Q6 IV Last administered on 10/18/18 10:16; Admin Dose 5 MG; Start 10/18/18 at 09:30; Status Hold Furosemide (Lasix) 40 mg BID DIURETICS IV Last administered on 10/19/18 05:47; Admin Dose 40 MG; Start 10/18/18 at 18:00 Famotidine (Pepcid Iv) 20 mg DAILY IV Last administered on 10/19/18 09:12; Admin Dose 20 MG; Start 10/18/18 at 13:00 Potassium Chloride/Dextrose/ Sod Cl 1,000 ml @ 100 mls/hr Q10H IV Last administered on 10/18/18 19:30; Admin Dose 100 MLS/HR; Start 10/18/18 at 19:30 Acetaminophen 100 ml @ 400 mls/hr Q6H PRN IVPB FEVER Last administered on 10/18/18 19:49; Admin Dose 400 MLS/HR; Start 10/18/18 at 19:00; Stop 10/19/18 at 18:59 Potassium Chloride 50 ml @ 50 mls/hr K PROTOCOL PRN IVPB PENDING LAB VALUE Last administered on 10/19/18at 09:12; Admin Dose 50 MLS/HR; Start 10/19/18 at 09:00 Assessment/Plan Chief Complaint/Hosp Course IMPRESSION: 1. Locally advanced breast cancer-s/p recent adriamycin/cyclophosphamide admitted 8 days later with neutropenic sepsis. 2. Pancytopenia: secondary to recent chemotherapy and sepsis 3. Hypokalemia secondary to dehydration/diarrhea 4. Hypernatremia 5. Acute on chronic renal failure-likely due to ATN/hypoperfusion RECOMMENDATIONS: 1. Cont daily Neupogen 2. Replete K 3. Hypotonic fluids 4. Gentle hydration so as to not put pt in acute CHF 5. Tx pRBC if Hb less than 7g/dl-will hold today 6. Tx if plts less than 10k. Hold today (14k today) 7. Check DIC labs 8. Renally dose antibiotics-will inform pharmacy 9. DNR SRINI LE Oct 19, 2018 09:49
[2018-10-19] MEDS: FLUCONAZOLE 200 MG (PMX) 100 ML IVPB SCH (12:46)
--- NOTE | 2018-10-19 12:51 | CONS ---
Date/Time of Note Date/Time of Note DATE: 10/19/18 TIME: 12:35 Consult Date/Type/Reason Admit Date/Time Oct 16, 2018 at 14:00 Initial Consult Date 10/18/18 Type of Consultation: Pulm/CCM Subjective Increased iybr-[id number] and oxygen requirements. Worsening renal failure and DIC noted. Objective Vital Signs Date Temp Pulse Resp B/P (MAP) Pulse Ox O2 O2 Flow FiO2 Time Delivery Rate 10/19/18 98.7 116 26 122/75 88 11:45 (91) 10/19/18 100 11:00 10/19/18 High Flow 11:00 10/19/18 15.0 06:21 Intake and Output 10/18/18 10/18/18 10/19/18 1515:00 23:00 07:00 IntakeIntake Total 2265 ml 690 ml 480 ml OutputOutput Total 1050 ml 550 ml BalanceBalance 1215 ml 140 ml 480 ml Exam HEENT: Neck supple; no JVD; no LAD: on high flow CVS: tachy, S1 and S2 CHEST: Bibasilar rales ABD: TTP, soft, + BS EXT: No c/c: + edema Results/Medications Result Diagram: 10/19/18 0709 Results 24 hrs Laboratory Tests Test 10/19/18 07:09 10/19/18 10:28 White Blood Count 0.1 L Red Blood Count 2.47 #L Hemoglobin 8.1 #L Hematocrit 24.1 #L Mean Corpuscular Volume 97.6 Mean Corpuscular Hemoglobin 32.8 Mean Corpuscular Hemoglobin Concent 33.6 Red Cell Distribution Width 19.4 #H Platelet Count 14 #*L Mean Platelet Volume 9.5 # Immature Granulocytes % Neutrophils % Segmented Neutrophils % (Manual) 5 L Band Neutrophils % (Manual) 32 H Lymphocytes % Lymphocytes % (Manual) 52 H Reactive Lymphocytes % (Manual) 2 H Monocytes % Monocytes % (Manual) 3 Eosinophils % Basophils % Metamyelocytes % (manual) 2 H Myelocytes % (Manual) 5 H Nucleated Red Blood Cells % 3 H Immature Granulocytes # Neutrophils # Neutrophils # (Manual) 0.0 L Band Neutrophils # 0.0 Lymphocytes (Manual) 0.0 L Lymphocytes # Reactive Lymphocytes # 0.0 Monocytes # Monocytes # (Manual) 0.0 L Eosinophils # Basophils # Metamyelocytes # 0.0 Myelocytes # 0.0 Nucleated Red Blood Cells # Toxic Granulation 1+ White Cell Morphology Comment @See below Platelet Estimate SIG DECREASED Giant Platelets 20 H Polychromasia 1+ Poikilocytosis 1+ Anisocytosis 2+ Macrocytosis 2+ Target Cells 1+ Ovalocytes 1+ Red Cell Morphology Comment @See below Sodium Level 153 H Potassium Level 2.5 *L Chloride Level 121 H Carbon Dioxide Level 21 Anion Gap 11 Blood Urea Nitrogen 35 #H Creatinine 1.57 H Est Glomerular Filtrat Rate mL/min 33 L Glucose Level 90 Calcium Level 9.2 Total Bilirubin 1.0 Direct Bilirubin 0.30 H Indirect Bilirubin 0.7 Aspartate Amino Transf (AST/SGOT) 19 Alanine Aminotransferase (ALT/SGPT) 21 Alkaline Phosphatase 26 L Total Protein 6.1 Albumin 3.1 L Globulin 3.00 Albumin/Globulin Ratio 1.03 Prothrombin Time 20.4 #H Prothrombin Time Ratio 1.6 INR International Normalized Ratio 1.74 Activated Partial Thromboplast Time 53.9 H Thrombin Time 13.6 L Fibrinogen 717.0 H Plasma Fibrin Degradation Products >10 and <40 H D-Dimer 4723.55 H D-Dimer Comment Medications Current Medications Acetaminophen/ Hydrocodone Bitart ([place] (10/325)) 1 tab Q4H WHILE AWAKE PRN PO PAIN Last administered on 10/17/18at 02:00; Admin Dose 1 TAB; Start 10/16/18 at 15:00 Ondansetron HCl (Zofran Tab) 8 mg Q8H PRN PO NAUSEA AND/OR VOMITING; Start 10/16/18 at 15:00 Multivitamins/ Minerals (Theragran-M) 1 tab DAILY PO ; Start 10/17/18 at 09:00 Acetaminophen (Tylenol Tab) 650 mg Q6H PRN PO MILD PAIN(1-3)OR ELEVATED TEMP Last administered on 10/16/18at 22:08; Admin Dose 650 MG; Start 10/16/18 at 15:00 Vancomycin HCl (Vanco Iv Per Pharmacy) VANCOMYCIN PER PHARMACY PER PROTOCOL XX ; Start 10/16/18 at 17:00 Zolpidem Tartrate (Ambien) 5 mg HS PRN PO INSOMNIA; Start 10/16/18 at 17:00 Ondansetron HCl (Zofran Inj) 4 mg Q4H PRN IV NAUSEA AND/OR VOMITING Last administered on 10/16/18at 18:25; Admin Dose 4 MG; Start 10/16/18 at 18:30 Miscellaneous Medication (Bax Susp) 10 ml Q6H PRN PO mouth pain and dysphagia Last administered on 10/17/18 08:25; Admin Dose 10 ML; Start 10/16/18 at 19:00 Hydromorphone HCl (Dilaudid) 1 mg Q3H PRN IV SEVERE PAIN LEVEL 7-10 Last administered on 10/19/18 10:44; Admin Dose 1 MG; Start 10/16/18 at 19:30 Filgrastim (Neupogen) 480 mcg DAILY@17 SC Last administered on 10/18/18 17:15; Admin Dose 480 MCG; Start 10/17/18 at 17:00 Diphenhydramine HCl (Benadryl) 50 mg Q6H PRN IM ALLERGIC REACTION Last administered on 10/18/18 20:57; Admin Dose 50 MG; Start 10/16/18 at 22:00 Diphenhydramine HCl (Benadryl) 50 mg Q6H PRN IV ALLERGIC REACTION Last administered on 10/18/18 13:37; Admin Dose 50 MG; Start 10/16/18 at 22:30 Levalbuterol (Xopenex Neb) 0.63 mg Q4H RESP THERAPY HHN Last administered on 10/19/18 09:47; Admin Dose 0.63 MG; Start 10/18/18 at 09:00 Fluconazole 100 ml @ 100 mls/hr Q24H IVPB Last administered on 10/18/18 10:29; Admin Dose 100 MLS/HR; Start 10/18/18 at 09:00 Vancomycin/Sodium Chloride 250 ml @ 125 mls/hr Q24H IVPB Last administered on 10/19/18 09:12; Admin Dose 125 MLS/HR; Start 10/19/18 at 09:00; Status Hold Metoprolol Tartrate (Lopressor) 5 mg Q6 IV Last administered on 10/18/18 10:16; Admin Dose 5 MG; Start 10/18/18 at 09:30; Status Hold Famotidine (Pepcid Iv) 20 mg DAILY IV Last administered on 10/19/18 09:12; Admin Dose 20 MG; Start 10/18/18 at 13:00 Potassium Chloride/Dextrose/ Sod Cl 1,000 ml @ 75 mls/hr Q50A99G IV Last administered on 10/18/18at 19:30; Admin Dose 100 MLS/HR; Start 10/18/18 at 19:30 Acetaminophen 100 ml @ 400 mls/hr Q6H PRN IVPB FEVER Last administered on 10/18/18at 19:49; Admin Dose 400 MLS/HR; Start 10/18/18 at 19:00; Stop 10/19/18 at 18:59 Potassium Chloride 50 ml @ 50 mls/hr K PROTOCOL PRN IVPB PENDING LAB VALUE Last administered on 10/19/18at 10:28; Admin Dose 50 MLS/HR; Start 10/19/18 at 09:00 Piperacillin Sod/ Tazobactam Sod 100 ml @ 200 mls/hr Q8 IVPB ; Start 10/19/18 at 14:00; Stop 10/23/18 at 18:00 Assessment/Plan Additional Assessment/Plan IMP: 1. Hypoxemic Respiratory Failure--etiology unclear. Cannot exclude PE vs. progressive pneumonitis 2. Neutropenic Sepsis--source most likely GI i.e. neutropenic enterocolitis 3. Hypokalemia secondary to dehydration/diarrhea 4. Hypernatremia 5. Acute on chronic renal failure 6. DIC 7. Anemia RECS: 1. Stat CXR and ABG 2. I had a long discussion with patients' and friend in order to clarify goals of care as her respiratory status is very tenuous and may be reaching a point where transition towards palliative/comfort measures would be needed in order to ensure that she does not suffer. Her clearly outlined that she would not want any "heroic" interventions and that she was an advocate for undergoing hospice care. 3. Continue high-flow FiO2 for now 4. Follow renal fxn 5. Renally adjust meds 6. Follow DIC labs 7. Palliative care consult 40 min cc time RIGO KNIGHT MD Oct 19, 2018 12:45
--- NOTE | 2018-10-19 14:26 | PN ---
Date/Time of Note Date/Time of Note DATE: 10/19/18 TIME: 14:18 Assessment/Plan VTE Prophylaxis Risk score (from [facility])>0 risk: 5 SCD applied (from [facility]): No SCD contraindicated: other Pharmacological prophylaxis: NA/contraindicated Pharm contraindication: thrombocytopenia Lines/Catheters IV Catheter Type (from [facility]): [place] Urinary Cath still in place: No Assessment/Plan Assessment/Plan A: sepsis pancytopenia resp failure ARF hypernatremia hypokalemia neck swelling P: cont abx, antifungal per ID transfuse as necessary replete K careful hydration supportive care monitor labs Result Diagram: 10/19/18 0709 Results 24hrs Laboratory Tests Test 10/19/18 07:09 10/19/18 10:28 White Blood Count 0.1 L Red Blood Count 2.47 #L Hemoglobin 8.1 #L Hematocrit 24.1 #L Mean Corpuscular Volume 97.6 Mean Corpuscular Hemoglobin 32.8 Mean Corpuscular Hemoglobin Concent 33.6 Red Cell Distribution Width 19.4 #H Platelet Count 14 #*L Mean Platelet Volume 9.5 # Immature Granulocytes % Neutrophils % Segmented Neutrophils % (Manual) 5 L Band Neutrophils % (Manual) 32 H Lymphocytes % Lymphocytes % (Manual) 52 H Reactive Lymphocytes % (Manual) 2 H Monocytes % Monocytes % (Manual) 3 Eosinophils % Basophils % Metamyelocytes % (manual) 2 H Myelocytes % (Manual) 5 H Nucleated Red Blood Cells % 3 H Immature Granulocytes # Neutrophils # Neutrophils # (Manual) 0.0 L Band Neutrophils # 0.0 Lymphocytes (Manual) 0.0 L Lymphocytes # Reactive Lymphocytes # 0.0 Monocytes # Monocytes # (Manual) 0.0 L Eosinophils # Basophils # Metamyelocytes # 0.0 Myelocytes # 0.0 Nucleated Red Blood Cells # Toxic Granulation 1+ White Cell Morphology Comment @See below Platelet Estimate SIG DECREASED Giant Platelets 20 H Polychromasia 1+ Poikilocytosis 1+ Anisocytosis 2+ Macrocytosis 2+ Target Cells 1+ Ovalocytes 1+ Red Cell Morphology Comment @See below Sodium Level 153 H Potassium Level 2.5 *L Chloride Level 121 H Carbon Dioxide Level 21 Anion Gap 11 Blood Urea Nitrogen 35 #H Creatinine 1.57 H Est Glomerular Filtrat Rate mL/min 33 L Glucose Level 90 Calcium Level 9.2 Total Bilirubin 1.0 Direct Bilirubin 0.30 H Indirect Bilirubin 0.7 Aspartate Amino Transf (AST/SGOT) 19 Alanine Aminotransferase (ALT/SGPT) 21 Alkaline Phosphatase 26 L Total Protein 6.1 Albumin 3.1 L Globulin 3.00 Albumin/Globulin Ratio 1.03 Prothrombin Time 20.4 #H Prothrombin Time Ratio 1.6 INR International Normalized Ratio 1.74 Activated Partial Thromboplast Time 53.9 H Thrombin Time 13.6 L Fibrinogen 717.0 H Plasma Fibrin Degradation Products >10 and <40 H D-Dimer 4723.55 H D-Dimer Comment Subjective 24 Hr Interval Summary Free Text/Dictation Pt remains in ICU. Neck swelling somewhat improved, speaking a bit better. Still with some pain throat/neck and abdomen. Exam/Review of Systems Vital Signs Vitals Vital Signs Date Temp Pulse Resp B/P (MAP) Pulse Ox O2 O2 Flow FiO2 Time Delivery Rate 10/19/18 121 28 110/68 13:45 (82) 10/19/18 90 100 13:06 10/19/18 High Flow 13:00 10/19/18 98.7 11:45 10/19/18 15.0 06:21 Intake and Output 10/18/18 10/18/18 10/19/18 1515:00 23:00 07:00 IntakeIntake Total 2265 ml 690 ml 480 ml OutputOutput Total 1050 ml 550 ml BalanceBalance 1215 ml 140 ml 480 ml Exam gen- ill appearing, tachypneic lungs- CTA anteriorly heart- tachy, regular abd- +BS, soft, diffuse tenderness ext- no edema Medications Medications Current Medications Acetaminophen/ Hydrocodone Bitart ([place] (10/325)) 1 tab Q4H WHILE AWAKE PRN PO PAIN Last administered on 10/17/18at 02:00; Admin Dose 1 TAB; Start 10/16/18 at 15:00 Ondansetron HCl (Zofran Tab) 8 mg Q8H PRN PO NAUSEA AND/OR VOMITING; Start 10/16/18 at 15:00 Multivitamins/ Minerals (Theragran-M) 1 tab DAILY PO ; Start 10/17/18 at 09:00 Acetaminophen (Tylenol Tab) 650 mg Q6H PRN PO MILD PAIN(1-3)OR ELEVATED TEMP Last administered on 10/16/18at 22:08; Admin Dose 650 MG; Start 10/16/18 at 15:00 Vancomycin HCl (Vanco Iv Per Pharmacy) VANCOMYCIN PER PHARMACY PER PROTOCOL XX ; Start 10/16/18 at 17:00 Zolpidem Tartrate (Ambien) 5 mg HS PRN PO INSOMNIA; Start 10/16/18 at 17:00 Ondansetron HCl (Zofran Inj) 4 mg Q4H PRN IV NAUSEA AND/OR VOMITING Last administered on 10/16/18 18:25; Admin Dose 4 MG; Start 10/16/18 at 18:30 Miscellaneous Medication (Bax Susp) 10 ml Q6H PRN PO mouth pain and dysphagia Last administered on 10/17/18 08:25; Admin Dose 10 ML; Start 10/16/18 at 19:00 Hydromorphone HCl (Dilaudid) 1 mg Q3H PRN IV SEVERE PAIN LEVEL 7-10 Last administered on 10/19/18 10:44; Admin Dose 1 MG; Start 10/16/18 at 19:30 Filgrastim (Neupogen) 480 mcg DAILY@17 SC Last administered on 10/18/18 17:15; Admin Dose 480 MCG; Start 10/17/18 at 17:00 Diphenhydramine HCl (Benadryl) 50 mg Q6H PRN IM ALLERGIC REACTION Last administered on 10/18/18 20:57; Admin Dose 50 MG; Start 10/16/18 at 22:00 Diphenhydramine HCl (Benadryl) 50 mg Q6H PRN IV ALLERGIC REACTION Last administered on 10/18/18 13:37; Admin Dose 50 MG; Start 10/16/18 at 22:30 Levalbuterol (Xopenex Neb) 0.63 mg Q4H RESP THERAPY HHN Last administered on 10/19/18 13:05; Admin Dose 0.63 MG; Start 10/18/18 at 09:00 Fluconazole 100 ml @ 100 mls/hr Q24H IVPB Last administered on 10/19/18 12:46; Admin Dose 100 MLS/HR; Start 10/18/18 at 09:00 Vancomycin/Sodium Chloride 250 ml @ 125 mls/hr Q24H IVPB Last administered on 10/19/18 09:12; Admin Dose 125 MLS/HR; Start 10/19/18 at 09:00; Status Hold Metoprolol Tartrate (Lopressor) 5 mg Q6 IV Last administered on 10/18/18at 10:16; Admin Dose 5 MG; Start 10/18/18 at 09:30; Status Hold Famotidine (Pepcid Iv) 20 mg DAILY IV Last administered on 10/19/18at 09:12; Admin Dose 20 MG; Start 10/18/18 at 13:00 Potassium Chloride/Dextrose/ Sod Cl 1,000 ml @ 75 mls/hr [id number] IV Last administered on 10/18/18at 19:30; Admin Dose 100 MLS/HR; Start 10/18/18 at 19:30 Acetaminophen 100 ml @ 400 mls/hr Q6H PRN IVPB FEVER Last administered on 10/18/18at 19:49; Admin Dose 400 MLS/HR; Start 10/18/18 at 19:00; Stop 10/19/18 at 18:59 Potassium Chloride 50 ml @ 50 mls/hr K PROTOCOL PRN IVPB PENDING LAB VALUE Last administered on 10/19/18at 12:45; Admin Dose 50 MLS/HR; Start 10/19/18 at 09:00 Piperacillin Sod/ Tazobactam Sod 100 ml @ 200 mls/hr Q8 IVPB ; Start 10/19/18 at 14:00; Stop 10/23/18 at 18:00 Miscellaneous Information (*Rx Drug Level Order Reminder*) RANDOM VANCO LEVEL... ONCE ONCE XX ; Start 10/20/18 at 05:00; Stop 10/20/18 at 05:01 MADONNA ANTUNEZ MD Oct 19, 2018 14:26
[2018-10-19] MEDS: FILGRASTIM 480 MCG INJ SC SCH (17:00)
[2018-10-19] MEDS ORDERED: LORAZEPAM 4 MG/ML VIAL IV PRN (20:00)
[2018-10-19] MEDS: morphine (DRIP) 100 MG/100 ML 100 ML IV SCH (20:04)
[2018-10-20] VITALS (42 sets, daily range): BP systolic 46–61; BP diastolic 37–47; PULSE 0–137; RESP 0–47
[2018-10-20] MEDS: LEVALBUTEROL (NEB) 0.63 MG/3 ML AMP HHN SCH ×3 (00:50→09:00)
[2018-10-20] MEDS: D5-NS + KCL 20 MEQ 1,000 ML IV SCH (06:41)
[2018-10-20] MEDS: PIPER-TAZO 3.375 GM IV (PMX) 100 ML IVPB SCH (07:05)
[2018-10-20] MEDS: morphine (DRIP) 100 MG/100 ML 100 ML IV SCH (08:28)
--- NOTE | 2018-10-20 08:44 | CONS ---
Date/Time of Note Date/Time of Note DATE: 10/20/18 TIME: 08:41 Consult Date/Type/Reason Admit Date/Time Oct 16, 2018 at 14:00 Initial Consult Date 10/18/18 Type of Consultation: Pulm/CCM Subjective Pt worsened yesterday. Became more tachypneic and tachyardic. Was nearing intubation but family and pt decided on keeping her DNI/DNR. Pt now on comfort measuring with morphine gtt. Objective Vital Signs Date Temp Pulse Resp B/P (MAP) Pulse Ox O2 O2 Flow FiO2 Time Delivery Rate 10/20/18 137 18 88 Nasal 05:00 Cannula 10/20/18 4.0 33 01:23 10/19/18 148/95 21:00 (112) 10/19/18 98.7 19:00 Intake and Output 10/19/18 10/19/18 10/20/18 1515:00 23:00 07:00 IntakeIntake Total 380 ml 857 ml 50 ml OutputOutput Total 803 ml 300 ml BalanceBalance -423 ml 557 ml 50 ml Exam Limited exam as pt on comfort measure Mouth agape and comatose Family at bedside Results/Medications Result Diagram: 10/19/18 0709 Results 24 hrs Laboratory Tests Test 10/19/18 10:28 Platelet Count Prothrombin Time 20.4 #H Prothrombin Time Ratio 1.6 INR International Normalized Ratio 1.74 Activated Partial Thromboplast Time 53.9 H Thrombin Time 13.6 L Fibrinogen 717.0 H Plasma Fibrin Degradation Products >10 and <40 H D-Dimer 4723.55 H D-Dimer Comment Medications Current Medications Acetaminophen/ Hydrocodone Bitart ([place] (10/325)) 1 tab Q4H WHILE AWAKE PRN PO PAIN Last administered on 10/17/18at 02:00; Admin Dose 1 TAB; Start 10/16/18 at 15:00 Ondansetron HCl (Zofran Tab) 8 mg Q8H PRN PO NAUSEA AND/OR VOMITING; Start 10/16/18 at 15:00 Multivitamins/ Minerals (Theragran-M) 1 tab DAILY PO ; Start 10/17/18 at 09:00 Acetaminophen (Tylenol Tab) 650 mg Q6H PRN PO MILD PAIN(1-3)OR ELEVATED TEMP Last administered on 10/16/18at 22:08; Admin Dose 650 MG; Start 10/16/18 at 15:00 Vancomycin HCl (Vanco Iv Per Pharmacy) VANCOMYCIN PER PHARMACY PER PROTOCOL XX ; Start 10/16/18 at 17:00 Zolpidem Tartrate (Ambien) 5 mg HS PRN PO INSOMNIA; Start 10/16/18 at 17:00 Ondansetron HCl (Zofran Inj) 4 mg Q4H PRN IV NAUSEA AND/OR VOMITING Last administered on 10/16/18 18:25; Admin Dose 4 MG; Start 10/16/18 at 18:30 Miscellaneous Medication (Bax Susp) 10 ml Q6H PRN PO mouth pain and dysphagia Last administered on 10/17/18 08:25; Admin Dose 10 ML; Start 10/16/18 at 19:00 Hydromorphone HCl (Dilaudid) 1 mg Q3H PRN IV SEVERE PAIN LEVEL 7-10 Last administered on 10/19/18 10:44; Admin Dose 1 MG; Start 10/16/18 at 19:30 Filgrastim (Neupogen) 480 mcg DAILY@17 SC Last administered on 10/19/18 17:00; Admin Dose 480 MCG; Start 10/17/18 at 17:00 Diphenhydramine HCl (Benadryl) 50 mg Q6H PRN IM ALLERGIC REACTION Last administered on 10/18/18 20:57; Admin Dose 50 MG; Start 10/16/18 at 22:00 Diphenhydramine HCl (Benadryl) 50 mg Q6H PRN IV ALLERGIC REACTION Last administered on 10/18/18 13:37; Admin Dose 50 MG; Start 10/16/18 at 22:30 Levalbuterol (Xopenex Neb) 0.63 mg Q4H RESP THERAPY HHN Last administered on 10/19/18 18:12; Admin Dose 0.63 MG; Start 10/18/18 at 09:00 Fluconazole 100 ml @ 100 mls/hr Q24H IVPB Last administered on 10/19/18 12:46; Admin Dose 100 MLS/HR; Start 10/18/18 at 09:00 Vancomycin/Sodium Chloride 250 ml @ 125 mls/hr Q24H IVPB Last administered on 10/19/18 09:12; Admin Dose 125 MLS/HR; Start 10/19/18 at 09:00; Status Hold Metoprolol Tartrate (Lopressor) 5 mg Q6 IV Last administered on 10/18/18at 10:16; Admin Dose 5 MG; Start 10/18/18 at 09:30; Status Hold Famotidine (Pepcid Iv) 20 mg DAILY IV Last administered on 10/19/18at 09:12; Admin Dose 20 MG; Start 10/18/18 at 13:00 Potassium Chloride/Dextrose/ Sod Cl 1,000 ml @ 75 mls/hr [id number] IV Last administered on 10/19/18at 16:28; Admin Dose 75 MLS/HR; Start 10/18/18 at 19:30 Potassium Chloride 50 ml @ 50 mls/hr K PROTOCOL PRN IVPB PENDING LAB VALUE Last administered on 10/19/18at 12:45; Admin Dose 50 MLS/HR; Start 10/19/18 at 09:00 Piperacillin Sod/ Tazobactam Sod 100 ml @ 200 mls/hr Q8 IVPB Last administered on 10/19/18at 14:58; Admin Dose 200 MLS/HR; Start 10/19/18 at 14:00; Stop 10/23/18 at 18:00 Morphine Sulfate/ Sodium Chloride 100 ml @ 0.5 mls/hr TITRATE IV Last administered on 10/20/18at 08:28; Admin Dose 10 MLS/HR; Start 10/19/18 at 20:00 Lorazepam (Ativan) 0.5 mg Q6H PRN IV AGITATION/ANXIETY; Start 10/19/18 at 20:00 Assessment/Plan Chief Complaint/Hosp Course IMPRESSION: 1. Locally advanced breast cancer-s/p recent adriamycin/cyclophosphamide admitted 9 days later with neutropenic sepsis. 2. Pancytopenia: secondary to recent chemotherapy and sepsis 3. Hypokalemia secondary to dehydration/diarrhea 4. Hypernatremia 5. Acute on chronic renal failure-likely due to ATN/hypoperfusion 6. Respiratory failure. Now on comfort measures. DNR/DNI RECOMMENDATIONS: 1. Cont morphine gtt. Titrate up as necessary for comfort. SRINI LE Oct 20, 2018 08:44
--- NOTE | 2018-10-20 08:52 | CONS ---
Date/Time of Note Date/Time of Note DATE: 10/20/18 TIME: 08:50 Assessment/Plan Assessment/Plan Hospital Course pt was recently diagnosed with breast CA and received chemo around one week ago She denies F, C, NS [employer] but has had fevers her in the hospital she developed difficulty in talking about 3 days ago and now how trouble swallowing She has had diarrhea and abd pain upon admission and still does, no recent antibiotics She also has developed pain to R neck area with some noticeable swelling She developed SOB last night and was brought to the ICU and she was found to have a hgb of 4.5 She denies CP No dysuria She has sore throat She has a NUÑEZ and dizziness Assessment/Plan pt is now on comfort care only per family's decision antibiotics were stopped no further blood draws I will sign off on case Result Diagram: 10/19/18 0709 Results 24hrs Laboratory Tests Test 10/19/18 10:28 Platelet Count Prothrombin Time 20.4 #H Prothrombin Time Ratio 1.6 INR International Normalized Ratio 1.74 Activated Partial Thromboplast Time 53.9 H Thrombin Time 13.6 L Fibrinogen 717.0 H Plasma Fibrin Degradation Products >10 and <40 H D-Dimer 4723.55 H D-Dimer Comment Consultation Date/Type/Reason Admit Date/Time Oct 16, 2018 at 14:00 Initial Consult Date 10/18/18 Type of Consult ID 24 HR Interval Summary Free Text/Dictation pt was placed on comfort care antibiotics were stopped this a.m. pt has been afebrile for more than 24 hours Exam/Review of Systems Vital Signs Vitals Vital Signs Date Temp Pulse Resp B/P (MAP) Pulse Ox O2 O2 Flow FiO2 Time Delivery Rate 10/20/18 137 18 88 Nasal 05:00 Cannula 10/20/18 4.0 33 01:23 10/19/18 148/95 21:00 (112) 10/19/18 98.7 19:00 Intake and Output 10/19/18 10/19/18 10/20/18 1515:00 23:00 07:00 IntakeIntake Total 380 ml 857 ml 50 ml OutputOutput Total 803 ml 300 ml BalanceBalance -423 ml 557 ml 50 ml Medications Medications Current Medications Acetaminophen/ Hydrocodone Bitart ([place] (10/325)) 1 tab Q4H WHILE AWAKE PRN PO PAIN Last administered on 10/17/18 02:00; Admin Dose 1 TAB; Start 10/16/18 at 15:00 Ondansetron HCl (Zofran Tab) 8 mg Q8H PRN PO NAUSEA AND/OR VOMITING; Start 10/16/18 at 15:00 Multivitamins/ Minerals (Theragran-M) 1 tab DAILY PO ; Start 10/17/18 at 09:00 Acetaminophen (Tylenol Tab) 650 mg Q6H PRN PO MILD PAIN(1-3)OR ELEVATED TEMP Last administered on 10/16/18 22:08; Admin Dose 650 MG; Start 10/16/18 at 15:00 Vancomycin HCl (Vanco Iv Per Pharmacy) VANCOMYCIN PER PHARMACY PER PROTOCOL XX ; Start 10/16/18 at 17:00 Zolpidem Tartrate (Ambien) 5 mg HS PRN PO INSOMNIA; Start 10/16/18 at 17:00 Ondansetron HCl (Zofran Inj) 4 mg Q4H PRN IV NAUSEA AND/OR VOMITING Last administered on 10/16/18 18:25; Admin Dose 4 MG; Start 10/16/18 at 18:30 Miscellaneous Medication (Bax Susp) 10 ml Q6H PRN PO mouth pain and dysphagia Last administered on 10/17/18 08:25; Admin Dose 10 ML; Start 10/16/18 at 19:00 Hydromorphone HCl (Dilaudid) 1 mg Q3H PRN IV SEVERE PAIN LEVEL 7-10 Last administered on 10/19/18 10:44; Admin Dose 1 MG; Start 10/16/18 at 19:30 Filgrastim (Neupogen) 480 mcg DAILY@17 SC Last administered on 10/19/18 17:00; Admin Dose 480 MCG; Start 10/17/18 at 17:00 Diphenhydramine HCl (Benadryl) 50 mg Q6H PRN IM ALLERGIC REACTION Last administered on 10/18/18 20:57; Admin Dose 50 MG; Start 10/16/18 at 22:00 Diphenhydramine HCl (Benadryl) 50 mg Q6H PRN IV ALLERGIC REACTION Last administered on 10/18/18 13:37; Admin Dose 50 MG; Start 10/16/18 at 22:30 Levalbuterol (Xopenex Neb) 0.63 mg Q4H RESP THERAPY HHN Last administered on 10/19/18 18:12; Admin Dose 0.63 MG; Start 10/18/18 at 09:00 Fluconazole 100 ml @ 100 mls/hr Q24H IVPB Last administered on 10/19/18 12:46; Admin Dose 100 MLS/HR; Start 10/18/18 at 09:00 Vancomycin/Sodium Chloride 250 ml @ 125 mls/hr Q24H IVPB Last administered on 10/19/18 09:12; Admin Dose 125 MLS/HR; Start 10/19/18 at 09:00; Status Hold Metoprolol Tartrate (Lopressor) 5 mg Q6 IV Last administered on 10/18/18 10:16; Admin Dose 5 MG; Start 10/18/18 at 09:30; Status Hold Famotidine (Pepcid Iv) 20 mg DAILY IV Last administered on 10/19/18 09:12; Admin Dose 20 MG; Start 10/18/18 at 13:00 Potassium Chloride/Dextrose/ Sod Cl 1,000 ml @ 75 mls/hr [id number] IV Last administered on 10/19/18 16:28; Admin Dose 75 MLS/HR; Start 10/18/18 at 19:30 Potassium Chloride 50 ml @ 50 mls/hr K PROTOCOL PRN IVPB PENDING LAB VALUE Last administered on 10/19/18 12:45; Admin Dose 50 MLS/HR; Start 10/19/18 at 09:00 Piperacillin Sod/ Tazobactam Sod 100 ml @ 200 mls/hr Q8 IVPB Last administered on 10/19/18 14:58; Admin Dose 200 MLS/HR; Start 10/19/18 at 14:00; Stop 10/23/18 at 18:00 Morphine Sulfate/ Sodium Chloride 100 ml @ 0.5 mls/hr TITRATE IV Last administered on 10/20/18 08:28; Admin Dose 10 MLS/HR; Start 10/19/18 at 20:00 Lorazepam (Ativan) 0.5 mg Q6H PRN IV AGITATION/ANXIETY; Start 10/19/18 at 20:00 MARIAM IBRAHIM MD Oct 20, 2018 08:52
[2018-10-20] MEDS: FAMOTIDINE 20 MG INJ IV SCH (09:00)
[2018-10-20] MEDS: FLUCONAZOLE 200 MG (PMX) 100 ML IVPB SCH (09:00)
[2018-10-20] MEDS: MULTIVITAMINS/MINERALS TAB PO SCH (09:00)
[2018-10-20] MEDS: HYDROmorphONE 1 MG/ML SYG IV PRN (09:58)
--- NOTE | 2018-10-20 10:53 | CONS ---
Date/Time of Note Date/Time of Note DATE: 10/20/18 TIME: 10:51 Consult Date/Type/Reason Admit Date/Time Oct 16, 2018 at 14:00 Initial Consult Date 10/18/18 Type of Consultation: Pulm/CCM Subjective Upon discussion with family--> transitioned to comfort care. Objective Vital Signs Date Temp Pulse Resp B/P (MAP) Pulse Ox O2 O2 Flow FiO2 Time Delivery Rate 10/20/18 132 18 87 10:15 10/20/18 Nasal 10:00 Cannula 10/20/18 3.0 08:00 10/20/18 33 01:23 10/19/18 148/95 21:00 (112) 10/19/18 98.7 19:00 Intake and Output 10/19/18 10/19/18 10/20/18 1515:00 23:00 07:00 IntakeIntake Total 380 ml 857 ml 60 ml OutputOutput Total 803 ml 300 ml BalanceBalance -423 ml 557 ml 60 ml Exam HEENT: Neck supple; no JVD; no LAD: on high flow CVS: tachy, S1 and S2 CHEST: Bibasilar rales ABD: TTP, soft, + BS EXT: No c/c: + edema NEURO: Unresponsive Results/Medications Result Diagram: 10/19/18 0709 Medications Current Medications Acetaminophen/ Hydrocodone Bitart ([place] (10/325)) 1 tab Q4H WHILE AWAKE PRN PO PAIN Last administered on 10/17/18at 02:00; Admin Dose 1 TAB; Start 10/16/18 at 15:00 Ondansetron HCl (Zofran Tab) 8 mg Q8H PRN PO NAUSEA AND/OR VOMITING; Start 10/16/18 at 15:00 Multivitamins/ Minerals (Theragran-M) 1 tab DAILY PO ; Start 10/17/18 at 09:00 Acetaminophen (Tylenol Tab) 650 mg Q6H PRN PO MILD PAIN(1-3)OR ELEVATED TEMP Last administered on 10/16/18at 22:08; Admin Dose 650 MG; Start 10/16/18 at 15:00 Vancomycin HCl (Vanco Iv Per Pharmacy) VANCOMYCIN PER PHARMACY PER PROTOCOL XX ; Start 10/16/18 at 17:00 Zolpidem Tartrate (Ambien) 5 mg HS PRN PO INSOMNIA; Start 10/16/18 at 17:00 Ondansetron HCl (Zofran Inj) 4 mg Q4H PRN IV NAUSEA AND/OR VOMITING Last ad ministered on 10/16/18 18:25; Admin Dose 4 MG; Start 10/16/18 at 18:30 Miscellaneous Medication (Bax Susp) 10 ml Q6H PRN PO mouth pain and dysphagia Last administered on 10/17/18 08:25; Admin Dose 10 ML; Start 10/16/18 at 19:00 Hydromorphone HCl (Dilaudid) 1 mg Q3H PRN IV SEVERE PAIN LEVEL 7-10 Last administered on 10/20/18 09:58; Admin Dose 1 MG; Start 10/16/18 at 19:30 Filgrastim (Neupogen) 480 mcg DAILY@17 SC Last administered on 10/19/18 17:00; Admin Dose 480 MCG; Start 10/17/18 at 17:00 Diphenhydramine HCl (Benadryl) 50 mg Q6H PRN IM ALLERGIC REACTION Last administered on 10/18/18 20:57; Admin Dose 50 MG; Start 10/16/18 at 22:00 Diphenhydramine HCl (Benadryl) 50 mg Q6H PRN IV ALLERGIC REACTION Last administered on 10/18/18 13:37; Admin Dose 50 MG; Start 10/16/18 at 22:30 Levalbuterol (Xopenex Neb) 0.63 mg Q4H RESP THERAPY HHN Last administered on 10/19/18 18:12; Admin Dose 0.63 MG; Start 10/18/18 at 09:00 Fluconazole 100 ml @ 100 mls/hr Q24H IVPB Last administered on 10/19/18 12:46; Admin Dose 100 MLS/HR; Start 10/18/18 at 09:00 Vancomycin/Sodium Chloride 250 ml @ 125 mls/hr Q24H IVPB Last administered on 10/19/18 09:12; Admin Dose 125 MLS/HR; Start 10/19/18 at 09:00; Status Hold Metoprolol Tartrate (Lopressor) 5 mg Q6 IV Last administered on 10/18/18 10:16; Admin Dose 5 MG; Start 10/18/18 at 09:30; Status Hold Famotidine (Pepcid Iv) 20 mg DAILY IV Last administered on 10/19/18at 09:12; Admin Dose 20 MG; Start 10/18/18 at 13:00 Potassium Chloride/Dextrose/ Sod Cl 1,000 ml @ 75 mls/hr [id number] IV Last administered on 10/19/18at 16:28; Admin Dose 75 MLS/HR; Start 10/18/18 at 19:30 Potassium Chloride 50 ml @ 50 mls/hr K PROTOCOL PRN IVPB PENDING LAB VALUE Last administered on 10/19/18at 12:45; Admin Dose 50 MLS/HR; Start 10/19/18 at 09:00 Piperacillin Sod/ Tazobactam Sod 100 ml @ 200 mls/hr Q8 IVPB Last administered on 10/19/18at 14:58; Admin Dose 200 MLS/HR; Start 10/19/18 at 14:00; Stop 10/23/18 at 18:00 Morphine Sulfate/ Sodium Chloride 100 ml @ 0.5 mls/hr TITRATE IV Last administered on 10/20/18at 08:28; Admin Dose 10 MLS/HR; Start 10/19/18 at 20:00 Lorazepam (Ativan) 0.5 mg Q6H PRN IV AGITATION/ANXIETY; Start 10/19/18 at 20:00 Assessment/Plan Additional Assessment/Plan IMP: 1. Hypoxemic Respiratory Failure- 2. Neutropenic Sepsis--source most likely GI i.e. neutropenic enterocolitis 3. Hypokalemia secondary to dehydration/diarrhea 4. Hypernatremia 5. Acute on chronic renal failure 6. DIC 7. Anemia RECS: 1. Transitioned to comfort care. Will sign off. RIGO KNIGHT MD Oct 20, 2018 10:53
--- NOTE | 2018-10-20 13:22 | PN ---
Date/Time of Note Date/Time of Note DATE: 10/20/18 TIME: 13:15 Assessment/Plan VTE Prophylaxis Risk score (from Ns)>0 risk: 6 SCD applied (from [facility]): No SCD contraindicated: other Pharmacological prophylaxis: NA/contraindicated Pharm contraindication: thrombocytopenia Lines/Catheters IV Catheter Type (from [facility]): Saline Lock Urinary Cath still in place: No Assessment/Plan Assessment/Plan A: sepsis respiratory failure ARF pancytopenia P: continue comfort measures only add prn morphine increase ativan as needed Result Diagram: 10/19/18 0709 Subjective 24 Hr Interval Summary Free Text/Dictation Family and friends at bedside. Pt with further decompensation yesterday. Discussed with and consistent with patient's wishes she was put on comfort measures. Started on morphine drip now max dose. Ativan also given. Exam/Review of Systems Vital Signs Vitals Vital Signs Date Temp Pulse Resp B/P (MAP) Pulse Ox O2 O2 Flow FiO2 Time Delivery Rate 10/20/18 131 26 85 12:30 10/20/18 98.8 46/37 (40) 12:15 10/20/18 Nasal 11:00 Cannula 10/20/18 3.0 08:00 10/20/18 33 01:23 Intake and Output 10/19/18 10/19/18 10/20/18 1515:00 23:00 07:00 IntakeIntake Total 380 ml 857 ml 60 ml OutputOutput Total 803 ml 300 ml BalanceBalance -423 ml 557 ml 60 ml Exam gen- pt unresponsive, does not appear in any pain. Medications Medications Current Medications Acetaminophen/ Hydrocodone Bitart ([place] (10/325)) 1 tab Q4H WHILE AWAKE PRN PO PAIN Last administered on 10/17/18at 02:00; Admin Dose 1 TAB; Start 10/16/18 at 15:00 Ondansetron HCl (Zofran Tab) 8 mg Q8H PRN PO NAUSEA AND/OR VOMITING; Start 10/16/18 at 15:00 Multivitamins/ Minerals (Theragran-M) 1 tab DAILY PO ; Start 10/17/18 at 09:00 Acetaminophen (Tylenol Tab) 650 mg Q6H PRN PO MILD PAIN(1-3)OR ELEVATED TEMP Last administered on 10/16/18at 22:08; Admin Dose 650 MG; Start 10/16/18 at 15:00 Vancomycin HCl (Vanco Iv Per Pharmacy) VANCOMYCIN PER PHARMACY PER PROTOCOL XX ; Start 10/16/18 at 17:00 Zolpidem Tartrate (Ambien) 5 mg HS PRN PO INSOMNIA; Start 10/16/18 at 17:00 Ondansetron HCl (Zofran Inj) 4 mg Q4H PRN IV NAUSEA AND/OR VOMITING Last administered on 10/16/18 18:25; Admin Dose 4 MG; Start 10/16/18 at 18:30 Miscellaneous Medication (Bax Susp) 10 ml Q6H PRN PO mouth pain and dysphagia Last administered on 10/17/18 08:25; Admin Dose 10 ML; Start 10/16/18 at 19:00 Hydromorphone HCl (Dilaudid) 1 mg Q3H PRN IV SEVERE PAIN LEVEL 7-10 Last administered on 10/20/18 09:58; Admin Dose 1 MG; Start 10/16/18 at 19:30 Filgrastim (Neupogen) 480 mcg DAILY@17 SC Last administered on 10/19/18 17:00; Admin Dose 480 MCG; Start 10/17/18 at 17:00 Diphenhydramine HCl (Benadryl) 50 mg Q6H PRN IM ALLERGIC REACTION Last administered on 10/18/18 20:57; Admin Dose 50 MG; Start 10/16/18 at 22:00 Diphenhydramine HCl (Benadryl) 50 mg Q6H PRN IV ALLERGIC REACTION Last administered on 10/18/18 13:37; Admin Dose 50 MG; Start 10/16/18 at 22:30 Levalbuterol (Xopenex Neb) 0.63 mg Q4H RESP THERAPY HHN Last administered on 10/19/18 18:12; Admin Dose 0.63 MG; Start 10/18/18 at 09:00 Fluconazole 100 ml @ 100 mls/hr Q24H IVPB Last administered on 10/19/18 12:46; Admin Dose 100 MLS/HR; Start 10/18/18 at 09:00 Vancomycin/Sodium Chloride 250 ml @ 125 mls/hr Q24H IVPB Last administered on 10/19/18 09:12; Admin Dose 125 MLS/HR; Start 10/19/18 at 09:00; Status Hold Metoprolol Tartrate (Lopressor) 5 mg Q6 IV Last administered on 10/18/18 10:16; Admin Dose 5 MG; Start 10/18/18 at 09:30; Status Hold Famotidine (Pepcid Iv) 20 mg DAILY IV Last administered on 10/19/18 09:12; Admin Dose 20 MG; Start 10/18/18 at 13:00 Potassium Chloride/Dextrose/ Sod Cl 1,000 ml @ 75 mls/hr [id number] IV Last administered on 10/19/18 16:28; Admin Dose 75 MLS/HR; Start 10/18/18 at 19:30 Potassium Chloride 50 ml @ 50 mls/hr K PROTOCOL PRN IVPB PENDING LAB VALUE Last administered on 10/19/18 12:45; Admin Dose 50 MLS/HR; Start 10/19/18 at 09:00 Piperacillin Sod/ Tazobactam Sod 100 ml @ 200 mls/hr Q8 IVPB Last administered on 10/19/18 14:58; Admin Dose 200 MLS/HR; Start 10/19/18 at 14:00; Stop 10/23/18 at 18:00 Morphine Sulfate/ Sodium Chloride 100 ml @ 0.5 mls/hr TITRATE IV Last administered on 10/20/18 08:28; Admin Dose 10 MLS/HR; Start 10/19/18 at 20:00 Lorazepam (Ativan) 0.5 mg Q6H PRN IV AGITATION/ANXIETY Last administered on 10/20/18 12:35; Admin Dose 0.5 MG; Start 10/19/18 at 20:00 MADONNA ANTUNEZ MD Oct 20, 2018 13:21
[2018-10-20] MEDS ORDERED: morphine 2 MG INJ IV PRN (13:30)
[2018-10-20] MEDS ORDERED: LORAZEPAM 4 MG/ML VIAL IV PRN (13:30)
--- NOTE | 2018-10-23 11:24 | RADRPT ---
Echocardiogram Report Patient Name: BEULAH SAENZ Gender: Female Date: 1950 Study Date: 16-Oct-2018 Staffing Coordinator: Sidney Bolivar [facility] Location: [address] Ref. Physician: GERARDO TAVAREZ Quality: Adequate Procedures: Transthoracic echocardiogram with complete 2D, M-Mode, and doppler examination. Indications: Breast CA. 2D/M Mode Doppler Measurement Value Normal Ranges Measurement Value Normal Ranges LVIDd 2D 4.0 3.5 - 5.6 cm AV Peak Pepe 1.6 m/sec LVIDs 2D 2.8 2.1 - 4.1 cm AV Peak PG 10.0 mmHg LVPWd 2D 0.9 0.6 - 1.1 cm AI Peak PG 60.0 mmHg IVSd 2D 0.9 0.6 - 1.1 cm AI Peak Pepe 3.9 m/sec AoR Diam 2D 2.8 2.0 - 3.7 cm AI PHT 406.0 msec LA/Ao 2D 1 0 - 1 LVOT Peak Pepe 1.2 m/sec LA Dimen 2D 3.3 2.3 - 4.0 cm LVOT Peak PG 6.0 mmHg MV E Peak Pepe 0.9 m/sec MV A Peak Pepe 1.1 m/sec MV E/A 0.8 MV Decel Time 137 msec Lat E` Pepe 0.1 m/sec Lateral E/E` 8.1 Med E` Pepe 0.1 m/sec MV E/A 0.8 TR Peak Pepe 2.9 m/sec TR Peak PG 33.0 mmHg RVSP 36.0 mmHg Findings Left Ventricle: Normal left ventricular systolic function. Normal left ventricular cavity size. Normal left ventricular wall thickness. Ejection fraction is visually estimated at 60 %. Tissue Doppler/Mitral Doppler indices are consistent with impaired relaxation (Stage I diastolic dysfunction). Right Ventricle: Normal right ventricular size. Normal right ventricular systolic function. Left Atrium: The left atrium is normal in size. Right Atrium: The right atrium is normal in size. Mitral Valve: Mild mitral leaflet calcification. Mild mitral annular calcification. Trace mitral regurgitation. Aortic Valve: No significant aortic stenosis or insufficiency. Aortic cusps appear mildly calcified. Mild aortic valve regurgitation. Tricuspid Valve: Normal appearance of the tricuspid valve. Estimated peak PA systolic pressure 36 mmHg. There is mild tricuspid regurgitation. Pulmonic Valve: Pulmonic valve not well visualized. There is trace pulmonic regurgitation. Pericardium: Normal pericardium with no significant pericardial effusion. There is an anterior echo free space consistent with epicardial fat pad. Aorta: Normal aortic root. IVC: Normal size and normal respiratory collapse consistent with normal right atrial pressure. Conclusions Normal left ventricular systolic function. Normal left ventricular cavity size. Normal left ventricular wall thickness. Ejection fraction is visually estimated at 60 %. Tissue Doppler/Mitral Doppler indices are consistent with impaired relaxation (Stage I diastolic dysfunction). Normal right ventricular size. Normal right ventricular systolic function. The left atrium is normal in size. Normal appearance of the tricuspid valve. Estimated peak PA systolic pressure 36 mmHg. There is mild tricuspid regurgitation. No significant aortic stenosis or insufficiency. Aortic cusps appear mildly calcified. Mild aortic valve regurgitation. Normal pericardium with no significant pericardial effusion. There is an anterior echo free space consistent with epicardial fat pad. Normal aortic root. Normal size and normal respiratory collapse consistent with normal right atrial pressure. No Vegetation, masses, or thrombi seen. Electronically Signed By: Christiano Laird 23-Oct-2018 11:22:57 -0800 Patient Name: BEULAH SAENZ Study Date: 16-Oct-2018 [id number]
--- NOTE | 2018-11-01 16:11 | DES ---
DATE OF ADMISSION: 10/16/2018 DATE OF : 10/20/2018 DIAGNOSES: 1. Cardiorespiratory failure. 2. Multisystem organ failure. 3. Sepsis. 4. Pancytopenia. 5. Breast cancer. CONSULTANTS: 1. Hematology/oncology, Gerardo Youssef MD 2. Cardiology, Edgar Costa MD 3. Infectious disease, Rey Clifton MD 4. Pulmonary. HISTORY OF PRESENT ILLNESS: The patient was a 67-year-old postmenopausal female who was recently diagnosed with invasive ductal breast carcinoma of the left breast. The patient was 1 week prior to admission being started on chemotherapy and approximately 1 to 2 days prior to admission, the patient began to experience increasing weakness, fatigue, abdominal pain, diarrhea, also shaking chills. She also felt like she had a subjective temperature. The patient presented to her oncologist's office and was sent to the hospital for admission. HOSPITAL COURSE: The patient on admission was found to have a white blood cell count of 100, 2% neutrophils, hemoglobin 7.7, platelets were 5000. The patient was treated for presumed sepsis. She was transfused platelets and blood and given appropriate antibiotics. Despite therapy, the patient deteriorated with worsening respiratory function. The patient was transferred to ICU. The patient declined intubation and was continued with aggressive management, but patient continued to deteriorate consistent with the patient's wishes and with further discussion with the family, the patient was put on comfort measures. The patient ultimately succumbed on 10/20/2018 at 15:59. Dictated By: MADONNA ANTUNEZ MD MN/NTS Conf#: [id number] DID#: [id number] CC: GERARDO YOUSSEF MD; SILVANO RITCHIE MD; MELBA LAZAR MD;*EndCC* MTDD
== END 2018-10-20 15:39 | disposition expired | DRG 871 ==
LOC: EEVIPCON → MS1 14:00 → ICU 10-17 09:19 → 6WM 10-17 18:00 → ICU 10-18 02:01
PROVIDERS: ADMIT Internal Medicine; ATTEND Internal Medicine Hematology & Oncology
PROC: 30233R1 Transfusion of Nonautologous Platelets into Peripheral Vein, Percutaneous Approach (ICD-10-PCS; principal; 2018-10-16)
PROC: 30233N1 Transfusion of Nonautologous Red Blood Cells into Peripheral Vein, Percutaneous Approach (ICD-10-PCS; 2018-10-19)
DX: A41.9 Sepsis, unspecified organism (principal); D61.810 Antineoplastic chemotherapy induced pancytopenia; J96.01 Acute respiratory failure with hypoxia; N17.0 Acute kidney failure with tubular necrosis; D65 Disseminated intravascular coagulation [defibrination syndrome]; E43 Unspecified severe protein-calorie malnutrition; Z68.1 Body mass index [BMI] 19.9 or less, adult; E87.0 Hyperosmolality and hypernatremia; R13.10 Dysphagia, unspecified; K12.31 Oral mucositis (ulcerative) due to antineoplastic therapy; D70.9 Neutropenia, unspecified; R50.81 Fever presenting with conditions classified elsewhere; C50.912 Malignant neoplasm of unspecified site of left female breast; Z17.0 Estrogen receptor positive status [ER+]; Z80.3 Family history of malignant neoplasm of breast; Z66 Do not resuscitate; E78.5 Hyperlipidemia, unspecified; Z85.820 Personal history of malignant melanoma of skin; K37 Unspecified appendicitis; E87.6 Hypokalemia; N18.9 Chronic kidney disease, unspecified; E86.0 Dehydration; R59.0 Localized enlarged lymph nodes; T45.1X5A Adverse effect of antineoplastic and immunosuppressive drugs, initial encounter
CPT/HCPCS: 36430; 71045; 74178; 76536; 80048; 80053; 80202; 81001; 82040; 82150; 83605; 83615; 83690; 84560; 85025; 85049; 85335; 85362; 85378; 85384; 85610; 85670; 85730; 86078; 86644; 86850; 86900; 86901; 86920; 86945; 87040; 87081; 93005; 93306; 94640; 94664; J0131; J1170; J1200; J1940; J2060; J2270; J2543; J3370; J3480; P9016; P9035; Q9967